=== PATIENT | female | born 1950 | race African-American/Black ===

== ENCOUNTER → 2017-08-31 | Outpatient (CLI) | payer MEDICARE, OTHER ==
[~2017-08-31] MED LIST: AML5T PO; ASPI81TA27 PO; ATOR10TA52 PO; CEPH500T PO; LISI-646 PO; SERT-275 PO; TRAM50TA2 PO
[2017-08-31 09:39] LABS: Basophils # (auto) 0.1 uL; Basophils % (auto) 1.4 % (0.0-2.0); Eosinophils # (auto) 0.2 uL; Hematocrit 41.6 % (36.0-46.0); Hemoglobin 13.9 g/dL (12.2-16.2); Lymphocytes # (auto) 1.1 uL; Lymphocytes % (auto) 19.7 % (10.0-50.0); Mean Corpuscular Hemoglobin 28.9 pg (28.0-32.0); Mean Corpuscular Hgb Conc. 33.4 g/dL (32.0-36.0); Mean Corpuscular Volume 86.5 fL (80.0-100.0); Monocytes # (auto) 0.3 uL; Monocytes % (auto) 5.5 % (0.0-12.0); Neutrophils # (auto) 3.9 uL; Neutrophils % (auto) 69.4 % (37.0-80.0); Nucleated Red Blood Cells % 0.1 %; Platelet Count (auto) 408 10^3/uL (140-450); Red Cell Distribution Width 13.9 % (11.8-14.3); White Blood Cell 5.6 10^3/uL (4.4-10.8)
[2017-08-31 09:53] LABS: Urine Bacteria FEW /hpf (None Seen); Urine Blood Negative /uL (Negative); Urine Mucus FEW (None Seen); Urine Specific Gravity 1.022 (1.001-1.035); Urine WBC 46 /hpf (0 - 5)
[2017-08-31 10:11] LABS: Albumin 3.6 g/dL (3.4-5.0); BUN/Creatinine Ratio 18.7; Bilirubin, Total 0.6 mg/dL (0.2-1.0); Calcium 9.2 mg/dL (8.5-10.1); Magnesium 2.4 mg/dL (1.6-2.6); Potassium 3.9 mmol/L (3.5-5.1); Total Protein 7.2 g/dL (6.4-8.2)
== END | disposition home or self-care (01) ==
LOC: LAB 08:58
DX: E78.5 Hyperlipidemia, unspecified (principal); D86.9 Sarcoidosis, unspecified; Z98.890 Other specified postprocedural states
CPT/HCPCS: 36415; 80053; 80061; 81001; 82043; 82306; 82728; 83036; 83735; 84443; 85025

== ENCOUNTER 2017-09-22 09:24 | Emergency (ER) | payer MEDICARE, OTHER ==
[~2017-09-22] VITALS: Ht 165.1 cm; Wt 84.8 kg
[2017-09-22 10:08] LABS: Basophils # (auto) 0.1 uL; Basophils % (auto) 0.8 % (0.0-2.0); Eosinophils # (auto) 0.3 uL; Eosinophils % (auto) 3.4 % (0.0-7.0); Hematocrit 43.9 % (36.0-46.0); Hemoglobin 14.6 g/dL (12.2-16.2); Lymphocytes # (auto) 1.2 uL; Lymphocytes % (auto) 13.2 % (10.0-50.0); Mean Corpuscular Hgb Conc. 33.2 g/dL (32.0-36.0); Mean Corpuscular Volume 87.3 fL (80.0-100.0); Monocytes # (auto) 0.7 uL; Neutrophils # (auto) 6.7 uL; Neutrophils % (auto) 74.6 % (37.0-80.0); Nucleated Red Blood Cells % 0.1 %; Platelet Count (auto) 427 10^3/uL (140-450); Red Blood Cells 5.02 10^6/uL (4.0-5.20); Red Cell Distribution Width 13.8 % (11.8-14.3)
[2017-09-22 10:36] LABS: Albumin 3.9 g/dL (3.4-5.0); BUN/Creatinine Ratio 17.1; Bilirubin, Total 0.3 mg/dL (0.2-1.0); Calcium 9.2 mg/dL (8.5-10.1); Potassium 4.4 mmol/L (3.5-5.1); Total Protein 8.2 g/dL (6.4-8.2)
[2017-09-22] MEDS ORDERED: SODIUM CHLORIDE 0.9% 1,000 ML IV ONE (11:12)
[2017-09-22 11:22] LABS: Urine Bacteria FEW /hpf (None Seen); Urine Blood Negative /uL (Negative); Urine Mucus FEW (None Seen); Urine Specific Gravity 1.034 (1.001-1.035); Urine WBC 170 /hpf (0 - 5)
[2017-09-22] MEDS ORDERED: LEVOFLOXACIN 500MG 100 ML IV ONE (12:15)
[2017-09-22 14:10] VITALS: BP 122/79
== END 2017-09-22 14:43 | disposition home or self-care (01) ==
LOC: ER 09:24
DX: N39.0 Urinary tract infection, site not specified (principal); F17.210 Nicotine dependence, cigarettes, uncomplicated; I10 Essential (primary) hypertension; E78.5 Hyperlipidemia, unspecified; M19.90 Unspecified osteoarthritis, unspecified site; Z79.899 Other long term (current) drug therapy; Z79.82 Long term (current) use of aspirin; Z98.84 Bariatric surgery status
CPT/HCPCS: 36415; 70450; 80053; 81001; 85025; 93005; 94761; 96361; 96365; 96366; 99285; J1956; J7030

== ENCOUNTER → 2017-10-13 | Outpatient (CLI) | payer MEDICARE, MEDICAID | END | disposition home or self-care (01) | LOC: LAB 09:06 | DX: M25.60 Stiffness of unspecified joint, not elsewhere classified (principal); R26.2 Difficulty in walking, not elsewhere classified | CPT/HCPCS: 36415; 84550; 85652 ==

== ENCOUNTER → 2018-09-04 | Outpatient (CLI) | payer MEDICARE, MEDICAID ==
[2018-09-04 14:41] LABS: Basophils # (auto) 0 uL; Basophils % (auto) 0.7 % (0.0-2.0); Eosinophils # (auto) 0.1 uL; Eosinophils % (auto) 2.2 % (0.0-7.0); Hematocrit 40.6 % (36.0-46.0); Hemoglobin 13.7 g/dL (12.2-16.2); Lymphocytes # (auto) 1.1 uL; Lymphocytes % (auto) 19.8 % (10.0-50.0); Mean Corpuscular Hemoglobin 29.6 pg (28.0-32.0); Mean Corpuscular Hgb Conc. 33.7 g/dL (32.0-36.0); Monocytes # (auto) 0.4 uL; Monocytes % (auto) 7.4 % (0.0-12.0); Neutrophils % (auto) 69.9 % (37.0-80.0); Nucleated Red Blood Cells % 0.1 %; Platelet Count (auto) 344 10^3/uL (140-450); Red Blood Cells 4.62 10^6/uL (4.0-5.20); Red Cell Distribution Width 14.8 % (11.8-14.3); White Blood Cell 5.7 10^3/uL (4.4-10.8)
[2018-09-04 14:44] LABS: Urine Bacteria FEW /hpf (None Seen); Urine Blood Negative /uL (Negative); Urine WBC 7 /hpf (0 - 5)
[2018-09-04 14:55] LABS: Alanine Aminotransferase 17 U/L (13-56); Albumin 3.6 g/dL (3.4-5.0); Anion Gap 3 (5-15); Aspartate Aminotransferase 17 U/L (15-37); BUN/Creatinine Ratio 12.4; Blood Urea Nitrogen 11 mg/dL (7-18); Calcium 8.7 mg/dL (8.5-10.1); Carbon Dioxide 30 mmol/L (21-32); Chloride 106 mmol/L (98-107); GFR African American > 60 mL/min; GFR Non-African American > 60 mL/min; Glucose 150 mg/dL (74-106); Potassium 3.6 mmol/L (3.5-5.1); Sodium 139 mmol/L (136-145)
[2018-09-04 14:59] LABS: Alkaline Phosphatase 79 U/L (45-117); Bilirubin, Total 0.2 mg/dL (0.2-1.0); Cholesterol 257 mg/dL (< 200); HDL Cholesterol 110 mg/dL (40-59); LDL Cholesterol 125 mg/dL (< 100); Total Protein 7.3 g/dL (6.4-8.2); Triglycerides 110 mg/dL (< 150)
== END | disposition home or self-care (01) ==
LOC: LAB 14:16
DX: I10 Essential (primary) hypertension (principal); E78.5 Hyperlipidemia, unspecified; M19.90 Unspecified osteoarthritis, unspecified site; Z79.899 Other long term (current) drug therapy
CPT/HCPCS: 36415; 80053; 80061; 81001; 82043; 83036; 84443; 85025; 87086

== ENCOUNTER → 2019-01-10 | Outpatient (CLI) | payer MEDICARE, MEDICAID ==
[2019-01-10 10:53] LABS: Basophils # (auto) 0 uL; Basophils % (auto) 0.7 % (0.0-2.0); Eosinophils # (auto) 0.3 uL; Eosinophils % (auto) 4.3 % (0.0-7.0); Hematocrit 41.4 % (36.0-46.0); Hemoglobin 13.6 g/dL (12.2-16.2); Lymphocytes # (auto) 1.8 uL; Lymphocytes % (auto) 27.8 % (10.0-50.0); Mean Corpuscular Hemoglobin 28.5 pg (28.0-32.0); Mean Corpuscular Hgb Conc. 32.9 g/dL (32.0-36.0); Mean Corpuscular Volume 86.7 fL (80.0-100.0); Monocytes # (auto) 0.4 uL; Monocytes % (auto) 6.6 % (0.0-12.0); Neutrophils # (auto) 3.9 uL; Neutrophils % (auto) 60.6 % (37.0-80.0); Nucleated Red Blood Cells % 0.1 %; Platelet Count (auto) 403 10^3/uL (140-450); Red Blood Cells 4.77 10^6/uL (4.0-5.20); Red Cell Distribution Width 14.5 % (11.8-14.3); White Blood Cell 6.5 10^3/uL (4.4-10.8)
[2019-01-10 10:56] LABS: Urine Bacteria FEW /hpf (None Seen); Urine Blood TRACE /uL (Negative); Urine Mucus FEW (None Seen); Urine Specific Gravity 1.018 (1.001-1.035); Urine WBC 22 /hpf (0 - 5)
[2019-01-10 11:00] LABS: Albumin 3.6 g/dL (3.4-5.0); BUN/Creatinine Ratio 14.9; Calcium 9.1 mg/dL (8.5-10.1); Potassium 3.7 mmol/L (3.5-5.1)
[2019-01-10 11:04] LABS: Bilirubin, Total 0.3 mg/dL (0.2-1.0); Total Protein 7.3 g/dL (6.4-8.2)
== END | disposition home or self-care (01) ==
LOC: LAB 10:18
PROVIDERS: ATTEND Internal Medicine
DX: I10 Essential (primary) hypertension (principal); R53.83 Other fatigue; E78.5 Hyperlipidemia, unspecified; M19.90 Unspecified osteoarthritis, unspecified site; Z79.899 Other long term (current) drug therapy
CPT/HCPCS: 36415; 80053; 80061; 81001; 82043; 82306; 82607; 83036; 84443; 85025; 87086

== ENCOUNTER → 2019-05-15 | Outpatient (CLI) | payer MEDICARE, MEDICAID ==
[~2019-05-15] MED LIST changes: +ASPI-404 PO; -ASPI81TA27 PO
[2019-05-15 10:23] LABS: Basophils # (auto) 0.1 uL; Basophils % (auto) 1.2 % (0.0-2.0); Eosinophils # (auto) 0.3 uL; Eosinophils % (auto) 4.8 % (0.0-7.0); Hematocrit 43.1 % (36.0-46.0); Hemoglobin 14.6 g/dL (12.2-16.2); Lymphocytes # (auto) 1.7 uL; Lymphocytes % (auto) 27.2 % (10.0-50.0); Mean Corpuscular Hemoglobin 28.8 pg (28.0-32.0); Mean Corpuscular Volume 84.7 fL (80.0-100.0); Monocytes # (auto) 0.3 uL; Neutrophils # (auto) 3.9 uL; Neutrophils % (auto) 61.8 % (37.0-80.0); Platelet Count (auto) 442 10^3/uL (140-450); Red Blood Cells 5.09 10^6/uL (4.0-5.20); Red Cell Distribution Width 14.1 % (11.8-14.3); White Blood Cell 6.3 10^3/uL (4.4-10.8)
[2019-05-15 10:26] LABS: Albumin 3.6 g/dL (3.4-5.0); Calcium 10.3 mg/dL (8.5-10.1); Potassium 4.3 mmol/L (3.5-5.1)
[2019-05-15 10:33] LABS: BUN/Creatinine Ratio 13.6; Bilirubin, Total 0.4 mg/dL (0.2-1.0); Total Protein 7.5 g/dL (6.4-8.2)
[2019-05-15 12:28] LABS: Urine Bacteria MANY /hpf (None Seen); Urine Blood TRACE /uL (Negative); Urine Hyaline Cast FEW /lpf (0 - 2); Urine Mucus FEW (None Seen); Urine Specific Gravity 1.024 (1.001-1.035); Urine WBC 329 /hpf (0 - 5)
== END | disposition home or self-care (01) ==
LOC: LAB 09:10
DX: N30.90 Cystitis, unspecified without hematuria (principal); E78.5 Hyperlipidemia, unspecified; R79.89 Other specified abnormal findings of blood chemistry
CPT/HCPCS: 36415; 80053; 80061; 81001; 82043; 83036; 84439; 84443; 85025; 87086

== ENCOUNTER → 2019-09-11 | Outpatient (CLI) | payer MEDICARE ==
[2019-09-11 10:33] LABS: Basophils # (auto) 0.1 uL; Eosinophils # (auto) 0.3 uL; Hematocrit 43.4 % (36.0-46.0); Hemoglobin 14.4 g/dL (12.2-16.2); Lymphocytes # (auto) 1.4 uL; Lymphocytes % (auto) 22.1 % (10.0-50.0); Mean Corpuscular Hemoglobin 28.8 pg (28.0-32.0); Mean Corpuscular Hgb Conc. 33.2 g/dL (32.0-36.0); Mean Corpuscular Volume 86.8 fL (80.0-100.0); Monocytes # (auto) 0.3 uL; Monocytes % (auto) 4.4 % (0.0-12.0); Neutrophils # (auto) 4.3 uL; Neutrophils % (auto) 68.5 % (37.0-80.0); Platelet Count (auto) 390 10^3/uL (140-450); White Blood Cell 6.3 10^3/uL (4.4-10.8)
[2019-09-11 10:46] LABS: Urine Bacteria FEW /hpf (None Seen); Urine Blood Negative /uL (Negative); Urine Mucus FEW (None Seen); Urine Specific Gravity 1.026 (1.001-1.035); Urine WBC 15 /hpf (0 - 5)
[2019-09-11 11:09] LABS: Potassium 4.1 mmol/L (3.5-5.1)
[2019-09-11 11:15] LABS: Albumin 3.9 g/dL (3.4-5.0); BUN/Creatinine Ratio 17.4; Bilirubin, Total 0.4 mg/dL (0.2-1.0); Calcium 9.3 mg/dL (8.5-10.1); Total Protein 7.8 g/dL (6.4-8.2); Uric Acid 4.8 mg/dL (2.6-6.0)
== END | disposition home or self-care (01) ==
LOC: LAB 09:52
DX: I10 Essential (primary) hypertension (principal); E78.5 Hyperlipidemia, unspecified; N30.90 Cystitis, unspecified without hematuria; D86.9 Sarcoidosis, unspecified; Z86.39 Personal history of other endocrine, nutritional and metabolic disease; Z79.899 Other long term (current) drug therapy
CPT/HCPCS: 36415; 80053; 80061; 81001; 82043; 82306; 83036; 83970; 84443; 84550; 85025; 87086

== ENCOUNTER 2020-01-31 09:14 | Emergency (ER) | payer MEDICARE, MEDICAID ==
[2020-01-31] MEDS ORDERED: SODIUM CHLORIDE 0.9% 1,000 ML IV ONE ×2 (09:51)
[2020-01-31 09:57] LABS: Basophils # (auto) 0.1 10 ^3/uL (0-0.2); Basophils % (auto) 0.9 % (0.0-2.0); Eosinophils # (auto) 0.4 10 ^3/uL (0-0.8); Eosinophils % (auto) 5.6 % (0.0-7.0); Hematocrit 40.4 % (36.0-46.0); Hemoglobin 13.1 g/dL (12.2-16.2); Lymphocytes # (auto) 2.1 10 ^3/uL (0.4-5.4); Lymphocytes % (auto) 26.4 % (10.0-50.0); Mean Corpuscular Hemoglobin 28.5 pg (28.0-32.0); Mean Corpuscular Hgb Conc. 32.5 g/dL (32.0-36.0); Mean Corpuscular Volume 87.9 fL (80.0-100.0); Monocytes # (auto) 0.5 10 ^3/uL (0-1.3); Monocytes % (auto) 6.5 % (0.0-12.0); Neutrophils # (auto) 4.8 10 ^3/uL (1.6-8.6); Neutrophils % (auto) 60.6 % (37.0-80.0); Platelet Count (auto) 400 10^3/uL (140-450); Red Cell Distribution Width 14.5 % (11.8-14.3); White Blood Cell 7.9 10^3/uL (4.4-10.8)
[2020-01-31 10:14] LABS: Albumin 3.4 g/dL (3.4-5.0); Anion Gap 6 (5-15); Blood Urea Nitrogen 13 mg/dL (7-18); Calcium 8.5 mg/dL (8.5-10.1); Carbon Dioxide 26 mmol/L (21-32); Chloride 108 mmol/L (98-107); Glucose 136 mg/dL (74-106); Potassium 3.6 mmol/L (3.5-5.1); Sodium 140 mmol/L (136-145)
[2020-01-31 10:20] LABS: Alanine Aminotransferase 19 U/L (13-56); Alkaline Phosphatase 74 U/L (45-117); Aspartate Aminotransferase 15 U/L (15-37); BUN/Creatinine Ratio 12.6; Bilirubin, Total 0.3 mg/dL (0.2-1.0); GFR African American 68 mL/min; GFR Non-African American 56 mL/min
[2020-01-31 10:24] VITALS: BP 154/83
[2020-01-31] MEDS ORDERED: IOHEXOL 350 MG/ML 100ML IJ ONE (10:36)
[2020-01-31] MEDS ORDERED: DONNATAL 5ml ORAL Elix (BELLADONNA ALK-PHENOBARB) PO ONE (11:15)
[2020-01-31] MEDS ORDERED: LIDOCAINE VISCOUS 2% 15ML UD PO ONE (11:15)
[2020-01-31] MEDS ORDERED: ALUM & MAG HYDROX-SIMETH LIQ(MAALOX) 30 ML PO ONE (11:15)
== END 2020-01-31 12:41 | disposition home or self-care (01) ==
LOC: ER 09:14 → EDBD 09:14 → ER 12:41
DX: R07.89 Other chest pain (principal); F41.9 Anxiety disorder, unspecified; R42 Dizziness and giddiness; R55 Syncope and collapse; F17.210 Nicotine dependence, cigarettes, uncomplicated; E78.5 Hyperlipidemia, unspecified; I10 Essential (primary) hypertension
CPT/HCPCS: 36415; 70450; 71045; 80053; 84484; 85025; 93005; 96360; 96361; 99285; J7030

== ENCOUNTER → 2020-02-04 | Outpatient (CLI) | payer MEDICARE, MEDICAID ==
[~2020-02-04] MED LIST changes: -ASPI-404 PO; +ASPI-543 PO
== END | disposition home or self-care (01) ==
LOC: XYW 10:07
DX: I65.23 Occlusion and stenosis of bilateral carotid arteries (principal); R55 Syncope and collapse
CPT/HCPCS: 93886

== ENCOUNTER → 2021-02-23 | Outpatient (CLI) | payer MEDICARE, MEDICAID ==
[~2021-02-23] MED LIST changes: -LISI-646 PO; +LISI20TA28 PO; -SERT-275 PO; +SERT25TA14 PO
[2021-02-23 10:30] LABS: Basophils # (auto) 0.1 10 ^3/uL (0-0.2); Basophils % (auto) 1.1 % (0.0-2.0); Eosinophils # (auto) 0.4 10 ^3/uL (0-0.8); Eosinophils % (auto) 4.8 % (0.0-7.0); Hematocrit 40.1 % (36.0-46.0); Hemoglobin 13.9 g/dL (12.2-16.2); Lymphocytes # (auto) 2.1 10 ^3/uL (0.4-5.4); Lymphocytes % (auto) 27.7 % (10.0-50.0); Mean Corpuscular Hemoglobin 29.8 pg (28.0-32.0); Mean Corpuscular Hgb Conc. 34.6 g/dL (32.0-36.0); Monocytes # (auto) 0.5 10 ^3/uL (0-1.3); Monocytes % (auto) 6.5 % (0.0-12.0); Neutrophils # (auto) 4.5 10 ^3/uL (1.6-8.6); Neutrophils % (auto) 59.9 % (37.0-80.0); Nucleated Red Blood Cells % 0.1 %; Platelet Count (auto) 391 10^3/uL (140-450); Red Blood Cells 4.66 10^6/uL (4.0-5.20); Red Cell Distribution Width 14.2 % (11.8-14.3); White Blood Cell 7.4 10^3/uL (4.4-10.8)
[2021-02-23 11:02] LABS: Urine Bacteria MOD /hpf (None Seen); Urine Blood Negative /uL (Negative); Urine Hyaline Cast MANY /lpf (0 - 2); Urine Mucus FEW (None Seen); Urine Specific Gravity 1.024 (1.001-1.035); Urine WBC 82 /hpf (0 - 5)
[2021-02-23 11:28] LABS: Folate (Folic Acid) 19.89 ng/mL (5.38-24)
[2021-02-23 12:44] LABS: BUN/Creatinine Ratio 19.2; Potassium 4.1 mmol/L (3.5-5.1)
[2021-02-23 12:45] LABS: Albumin 3.6 g/dL (3.4-5.0); Bilirubin, Total 0.4 mg/dL (0.2-1.0); Calcium 9.6 mg/dL (8.5-10.1); Total Protein 7.2 g/dL (6.4-8.2); Uric Acid 4.5 mg/dL (2.6-6.0)
== END | disposition home or self-care (01) ==
LOC: LAB 10:06
DX: I10 Essential (primary) hypertension (principal); E78.5 Hyperlipidemia, unspecified; R93.89 Abnormal findings on diagnostic imaging of other specified body structures; R42 Dizziness and giddiness; R79.9 Abnormal finding of blood chemistry, unspecified; M48.02 Spinal stenosis, cervical region; M50.20 Other cervical disc displacement, unspecified cervical region; Z79.899 Other long term (current) drug therapy
CPT/HCPCS: 36415; 80053; 81001; 82306; 82607; 82746; 83036; 84443; 84550; 85025; 85049; 86800

== ENCOUNTER 2021-03-06 13:47 | Inpatient (IN) | payer MEDICARE, MEDICAID ==
[~2021-03-06] VITALS: Ht 165.1 cm; Wt 90.9 kg
[2021-03-06 15:09] LABS: Basophils # (auto) 0.1 10 ^3/uL (0-0.2); Eosinophils # (auto) 0.3 10 ^3/uL (0-0.8); Eosinophils % (auto) 3.1 % (0.0-7.0); Hematocrit 40.4 % (36.0-46.0); Hemoglobin 13.2 g/dL (12.2-16.2); Lymphocytes # (auto) 2.1 10 ^3/uL (0.4-5.4); Lymphocytes % (auto) 23.9 % (10.0-50.0); Mean Corpuscular Hemoglobin 28.7 pg (28.0-32.0); Mean Corpuscular Hgb Conc. 32.6 g/dL (32.0-36.0); Mean Corpuscular Volume 88.2 fL (80.0-100.0); Monocytes # (auto) 0.7 10 ^3/uL (0-1.3); Monocytes % (auto) 8.2 % (0.0-12.0); Neutrophils # (auto) 5.5 10 ^3/uL (1.6-8.6); Neutrophils % (auto) 63.8 % (37.0-80.0); Red Blood Cells 4.58 10^6/uL (4.0-5.20); Red Cell Distribution Width 14.2 % (11.8-14.3); White Blood Cell 8.6 10^3/uL (4.4-10.8)
[2021-03-06 15:30] LABS: Blood Urea Nitrogen 16 mg/dL (7-18); Calcium 8.7 mg/dL (8.5-10.1); Chloride 111 mmol/L (98-107); Glucose 102 mg/dL (74-106); Potassium 3.4 mmol/L (3.5-5.1); Sodium 141 mmol/L (136-145)
[2021-03-06 15:33] LABS: Albumin 3.4 g/dL (3.4-5.0); Anion Gap 8 (5-15); BUN/Creatinine Ratio 15.7; Carbon Dioxide 22 mmol/L (21-32); GFR African American 69 mL/min; GFR Non-African American 57 mL/min
[2021-03-06] MEDS ORDERED: SODIUM CHLORIDE 0.9% 1,000 ML IVB ONE (15:45)
[2021-03-06 15:47] LABS: Alanine Aminotransferase 21 U/L (13-56); Alkaline Phosphatase 66 U/L (45-117); Aspartate Aminotransferase 15 U/L (15-37); Bilirubin, Total 0.2 mg/dL (0.2-1.0); Total Protein 6.9 g/dL (6.4-8.2)
[2021-03-06] MEDS ORDERED: PANTOPRAZOLE 40 MG TAB PO ONE (16:33)
[2021-03-06 16:59] LABS: INR 1.12 (0.9-1.15); Partial Thromboplastin Time 21.9 sec (23.0-31.2)
[2021-03-06] MEDS ORDERED: POTASSIUM EFFERVESENT TAB 25 MEQ PO ONE (17:45)
[2021-03-06] MEDS ORDERED: SODIUM CHLORIDE 0.9% 1,000 ML IV SCH (18:15)
[2021-03-06] MEDS ORDERED: traMADol HCL 50 MG TAB PO PRN ×2 (18:15→19:00)
[2021-03-06] MEDS ORDERED: LABETALOL HCL 5 MG/ML ML 20ML VIAL IV PRN (18:15)
[2021-03-06] MEDS ORDERED: LACTULOSE 20Gm/30ML SOLN PO PRN (18:15)
[2021-03-06] MEDS ORDERED: ACETAMINOPHEN 500 MG TAB PO PRN ×2 (18:15→20:00)
[2021-03-06] MEDS ORDERED: SODIUM CHLORIDE 0.9% 2,700 ML IV ONE (18:15)
[2021-03-06] MEDS ORDERED: ONDANSETRON HCL 4 MG/2 ML VIAL IV PRN (18:15)
[2021-03-06] MEDS ORDERED: NITROGLYCERIN 0.4 MG SL TAB SL PRN (18:15)
[2021-03-06] MEDS ORDERED: MORPHINE SULF INJ 2 MG/ML SYRINGE 1ML IV PRN (18:15)
[2021-03-06 19:09] LABS: Urine Bacteria FEW /hpf (None Seen); Urine Blood Negative /uL (Negative); Urine Hyaline Cast MANY /lpf (0 - 2); Urine Mucus FEW (None Seen); Urine Specific Gravity 1.013 (1.001-1.035); Urine WBC 1 /hpf (0 - 5)
[2021-03-06 20:11] LABS: Alcohol, Urine < 3.0 mg/dL (0-10); Amphetamine Screen, Urine NEGATIVE (NEGATIVE); Barbiturate Scree,Urine NEGATIVE (NEGATIVE); Benzodiazephine Screen, Urine NEGATIVE (NEGATIVE); Cannabinoid Screen, Urine NEGATIVE (NEGATIVE); Cocaine Screen, Urine NEGATIVE (NEGATIVE); Opiate Scree,Urine NEGATIVE (NEGATIVE); Phencyclidine Screen, Urine NEGATIVE (NEGATIVE)
[2021-03-06 22:00] VITALS: BP 127/79
[2021-03-06] MEDS: SODIUM CHLORIDE 0.9% 1,000 ML IV SCH (23:14)
[2021-03-07] MEDS: SODIUM CHLORIDE 0.9% 1,000 ML IV SCH ×2 (04:45→14:45)
[2021-03-07 05:00] VITALS: BP 125/68
[2021-03-07 08:40] LABS: BUN/Creatinine Ratio 14.3; Calcium 8.5 mg/dL (8.5-10.1); Potassium 4.1 mmol/L (3.5-5.1)
[2021-03-07 08:45] LABS: Basophils # (auto) 0 10 ^3/uL (0-0.2); Basophils % (auto) 0.6 % (0.0-2.0); Eosinophils # (auto) 0.3 10 ^3/uL (0-0.8); Eosinophils % (auto) 3.6 % (0.0-7.0); Hematocrit 37.4 % (36.0-46.0); Hemoglobin 12.4 g/dL (12.2-16.2); Lymphocytes # (auto) 2.4 10 ^3/uL (0.4-5.4); Lymphocytes % (auto) 32.8 % (10.0-50.0); Mean Corpuscular Hemoglobin 28.9 pg (28.0-32.0); Mean Corpuscular Hgb Conc. 33.2 g/dL (32.0-36.0); Mean Corpuscular Volume 86.9 fL (80.0-100.0); Monocytes # (auto) 0.6 10 ^3/uL (0-1.3); Monocytes % (auto) 8.3 % (0.0-12.0); Neutrophils % (auto) 54.7 % (37.0-80.0); Nucleated Red Blood Cells % 0.1 %; Red Blood Cells 4.31 10^6/uL (4.0-5.20); Red Cell Distribution Width 14.4 % (11.8-14.3); White Blood Cell 7.4 10^3/uL (4.4-10.8)
[2021-03-07 09:12] VITALS: BP 131/76
[2021-03-07] MEDS: ASPirin 81 mg TAB PO SCH (09:43)
[2021-03-07] MEDS: PANTOPRAZOLE 40 MG TAB PO SCH (09:44)
[2021-03-07] MEDS: ENOXAPARIN SOD 40 MG/0.4 ML SYRINGE SC SCH (09:44)
[2021-03-07] MEDS: SERTRALINE HCL 50 MG TAB PO SCH (09:44)
[2021-03-07] MEDS ORDERED: PATIENTS OWN MEDICATION (Sertraline Hcl 1 TAB) PO SCH (10:00)
[2021-03-07] MEDS ORDERED: PATIENTS OWN MEDICATION (Atorvastatin Calcium 1 TAB) PO SCH (10:00)
[2021-03-07 13:00] VITALS: BP 154/63
[2021-03-07 22:00] VITALS: BP 108/57
[2021-03-07] MEDS: ATORVASTATIN 20 MG TAB PO SCH (22:10)
[2021-03-08] MEDS: SODIUM CHLORIDE 0.9% 1,000 ML IV SCH ×3 (01:06→22:21)
[2021-03-08 05:00] VITALS: BP 124/72
[2021-03-08] MEDS: ASPirin 81 mg TAB PO SCH (10:00)
[2021-03-08] MEDS: PANTOPRAZOLE 40 MG TAB PO SCH (10:00)
[2021-03-08] MEDS: SERTRALINE HCL 50 MG TAB PO SCH (10:00)
[2021-03-08] MEDS: ENOXAPARIN SOD 40 MG/0.4 ML SYRINGE SC SCH (10:00)
[2021-03-08 13:00] VITALS: BP 124/59
[2021-03-08 22:00] VITALS: BP 104/70
[2021-03-08] MEDS: PANTOPRAZOLE 40 MG/10 ML VIAL INJ IV SCH (22:08)
[2021-03-08] MEDS: ATORVASTATIN 20 MG TAB PO SCH (22:08)
[2021-03-09 05:45] VITALS: BP 134/69
[2021-03-09] MEDS: SODIUM CHLORIDE 0.9% 1,000 ML IV SCH ×2 (06:41→06:45)
[2021-03-09 09:00] VITALS: BP 140/85
[2021-03-09] MEDS ORDERED: LIDOCAINE VISCOUS 2% 15ML UD ONE (09:17)
[2021-03-09] MEDS ORDERED: SODIUM CHLORIDE LOCK 10 ML ONE (09:18)
[2021-03-09] MEDS: ASPirin 81 mg TAB PO SCH (10:00)
[2021-03-09] MEDS: SERTRALINE HCL 50 MG TAB PO SCH (10:00)
[2021-03-09] MEDS: PANTOPRAZOLE 40 MG/10 ML VIAL INJ IV SCH (10:00)
[2021-03-09] MEDS: ENOXAPARIN SOD 40 MG/0.4 ML SYRINGE SC SCH (10:00)
[2021-03-09] MEDS: MIDAZOLAM HCL 5 MG/ML-1ML VIAL ONE ×2 (11:22→11:25)
[2021-03-09] MEDS: fentaNYL CITRATE 100 MCG/2 ML VL ONE ×2 (11:22→11:25)
[2021-03-09] MEDS: diphenhdrAMINE HCL 50 MG/1 ML VL ONE ×2 (11:22→11:25)
[2021-03-09 13:00] VITALS: BP 118/63
[2021-03-09] MEDS ORDERED: SUCR1TAB22 PO (14:35)
[2021-03-09] MEDS ORDERED: PANT40TA2 PO (14:35)
[2021-03-09 16:02] VITALS: BP 140/85
[2021-03-09] MEDS ORDERED: SUCRALFATE 1 GM/10 ML ORAL SUSP PO SCH (17:00)
== END 2021-03-09 17:17 | disposition home health service (06) | DRG 315 ==
LOC: ER 13:47 → EDBD 13:47 → TELE 18:13 → TELE-WESTW 21:25
PROVIDERS: ADMIT Internal Medicine; ATTEND Internal Medicine
PROC: 0DB68ZX Excision of Stomach, Via Natural or Artificial Opening Endoscopic, Diagnostic (ICD-10-PCS; 2021-03-09)
PROC: 0DB38ZX Excision of Lower Esophagus, Via Natural or Artificial Opening Endoscopic, Diagnostic (ICD-10-PCS; 2021-03-09)
PROC: 0DB98ZX Excision of Duodenum, Via Natural or Artificial Opening Endoscopic, Diagnostic (ICD-10-PCS; principal; 2021-03-09 11:16)
DX: I95.9 Hypotension, unspecified (principal); K22.10 Ulcer of esophagus without bleeding; E86.1 Hypovolemia; I10 Essential (primary) hypertension; E87.6 Hypokalemia; D86.9 Sarcoidosis, unspecified; F41.9 Anxiety disorder, unspecified; F32.9 Major depressive disorder, single episode, unspecified; E66.9 Obesity, unspecified; Z98.84 Bariatric surgery status; E78.5 Hyperlipidemia, unspecified; K21.9 Gastro-esophageal reflux disease without esophagitis; F17.210 Nicotine dependence, cigarettes, uncomplicated; Z20.822 Contact with and (suspected) exposure to COVID-19; Z88.8 Allergy status to other drugs, medicaments and biological substances; Z68.33 Body mass index [BMI] 33.0-33.9, adult; G90.9 Disorder of the autonomic nervous system, unspecified; I11.9 Hypertensive heart disease without heart failure; K29.70 Gastritis, unspecified, without bleeding; K44.9 Diaphragmatic hernia without obstruction or gangrene; Z82.0 Family history of epilepsy and other diseases of the nervous system; Z82.49 Family history of ischemic heart disease and other diseases of the circulatory system; Z83.3 Family history of diabetes mellitus; Z79.82 Long term (current) use of aspirin; Z79.899 Other long term (current) drug therapy; M19.90 Unspecified osteoarthritis, unspecified site
CPT/HCPCS: 36415; 70450; 71046; 76705; 80048; 80053; 80307; 81001; 82550; 83735; 84443; 84484; 85025; 85379; 85610; 85730; 86850; 86900; 86901; 87426; 93005; 93306; 93886; 96360; 96361; C9113; G0378; J2250

== ENCOUNTER 2021-06-03 09:14 | Emergency (ER) | payer MEDICARE, MEDICAID ==
[~2021-06-03] VITALS: Ht 165.1 cm; Wt 81.2 kg
[~2021-06-03 09:14] MED LIST changes: -CEPH500T PO; +PANT40TA2 PO; +SUCR1TAB22 PO
[2021-06-03] MEDS ORDERED: ACETAMINOPHEN 500 MG TAB PO ONE (10:15)
[2021-06-03 10:17] VITALS: BP 160/88
== END 2021-06-03 10:24 | disposition home or self-care (01) ==
LOC: ER 09:14
DX: S93.402A Sprain of unspecified ligament of left ankle, initial encounter (principal); I10 Essential (primary) hypertension; E78.5 Hyperlipidemia, unspecified; F17.210 Nicotine dependence, cigarettes, uncomplicated; Z79.82 Long term (current) use of aspirin; Z79.899 Other long term (current) drug therapy; Z88.8 Allergy status to other drugs, medicaments and biological substances; W18.49XA Other slipping, tripping and stumbling without falling, initial encounter; Y93.89 Activity, other specified; Y92.89 Other specified places as the place of occurrence of the external cause; Y99.8 Other external cause status
CPT/HCPCS: 73610

== ENCOUNTER 2021-09-01 07:44 | Emergency (ER) | payer MEDICARE, MEDICAID ==
[~2021-09-01] VITALS: Ht 165.1 cm; Wt 86.2 kg
[~2021-09-01 07:44] MED LIST changes: -AML5T PO; -ASPI-543 PO; -ATOR10TA52 PO; +CHOL20007 OR; -SERT25TA14 PO; -TRAM50TA2 PO
[2021-09-01 08:40] VITALS: BP 167/81
[2021-09-01 10:03] LABS: Urine Bacteria FEW /hpf (None Seen); Urine Blood Negative /uL (Negative); Urine WBC 23 /hpf (0 - 5)
[2021-09-01] MEDS ORDERED: ALBU108A5 IN (10:29)
[2021-09-01] MEDS ORDERED: LEVO500T31 PO (10:29)
== END 2021-09-01 10:39 | disposition home or self-care (01) ==
LOC: ER 07:44
DX: J20.9 Acute bronchitis, unspecified (principal); N39.0 Urinary tract infection, site not specified; Z20.822 Contact with and (suspected) exposure to COVID-19
CPT/HCPCS: 36415; 71046; 81001; 87426

== ENCOUNTER → 2021-11-10 | Outpatient (CLI) | payer MEDICARE, MEDICAID ==
[~2021-11-10] MED LIST changes: +ALBU108A5 IN; +LEVO500T31 PO
[2021-11-10 11:26] LABS: Basophils # (auto) 0 10 ^3/uL (0-0.2); Basophils % (auto) 0.7 % (0.0-2.0); Eosinophils # (auto) 0.2 10 ^3/uL (0-0.8); Eosinophils % (auto) 3.8 % (0.0-7.0); Hematocrit 36.6 % (36.0-46.0); Hemoglobin 12.2 g/dL (12.2-16.2); Lymphocytes # (auto) 1.6 10 ^3/uL (0.4-5.4); Lymphocytes % (auto) 30.1 % (10.0-50.0); Mean Corpuscular Hemoglobin 28.2 pg (28.0-32.0); Mean Corpuscular Hgb Conc. 33.3 g/dL (32.0-36.0); Mean Corpuscular Volume 84.8 fL (80.0-100.0); Monocytes # (auto) 0.4 10 ^3/uL (0-1.3); Monocytes % (auto) 6.7 % (0.0-12.0); Neutrophils # (auto) 3.2 10 ^3/uL (1.6-8.6); Neutrophils % (auto) 58.7 % (37.0-80.0); Nucleated Red Blood Cells % 0.1 %; Red Blood Cells 4.31 10^6/uL (4.0-5.20); Red Cell Distribution Width 15.5 % (11.8-14.3); White Blood Cell 5.5 10^3/uL (4.4-10.8)
[2021-11-10 11:52] LABS: Potassium 4.4 mmol/L (3.5-5.1)
[2021-11-10 12:13] LABS: BUN/Creatinine Ratio 16.7
[2021-11-10 12:14] LABS: Albumin 3.5 g/dL (3.4-5.0); Bilirubin, Total 0.4 mg/dL (0.2-1.0); Calcium 9.3 mg/dL (8.5-10.1); Total Protein 7.1 g/dL (6.4-8.2)
== END | disposition home or self-care (01) ==
LOC: LAB 09:48
PROVIDERS: ATTEND Family Medicine
DX: I12.9 Hypertensive chronic kidney disease with stage 1 through stage 4 chronic kidney disease, or unspecified chronic kidney disease (principal); N18.2 Chronic kidney disease, stage 2 (mild); K29.70 Gastritis, unspecified, without bleeding; E78.5 Hyperlipidemia, unspecified; R53.83 Other fatigue; R73.03 Prediabetes; E55.9 Vitamin D deficiency, unspecified; R55 Syncope and collapse
CPT/HCPCS: 36415; 80053; 80061; 82306; 83036; 84439; 84443; 85025

== ENCOUNTER → 2022-01-12 | Outpatient (CLI) | payer MEDICARE, MEDICAID ==
[2022-01-12 10:47] LABS: Urine Bacteria FEW /hpf (None Seen); Urine Blood Negative /uL (Negative); Urine Specific Gravity 1.027 (1.001-1.035); Urine WBC 4 /hpf (0 - 5)
[2022-01-12 10:52] LABS: Basophils # (auto) 0.1 10 ^3/uL (0-0.2); Basophils % (auto) 0.8 % (0.0-2.0); Eosinophils # (auto) 0.2 10 ^3/uL (0-0.8); Eosinophils % (auto) 3.2 % (0.0-7.0); Hematocrit 38.7 % (36.0-46.0); Hemoglobin 12.5 g/dL (12.2-16.2); Lymphocytes # (auto) 1.5 10 ^3/uL (0.4-5.4); Lymphocytes % (auto) 22.4 % (10.0-50.0); Mean Corpuscular Hemoglobin 27.2 pg (28.0-32.0); Mean Corpuscular Hgb Conc. 32.4 g/dL (32.0-36.0); Monocytes # (auto) 0.4 10 ^3/uL (0-1.3); Monocytes % (auto) 6.5 % (0.0-12.0); Neutrophils # (auto) 4.5 10 ^3/uL (1.6-8.6); Neutrophils % (auto) 67.1 % (37.0-80.0); Red Cell Distribution Width 15.1 % (11.8-14.3); White Blood Cell 6.7 10^3/uL (4.4-10.8)
[2022-01-12 11:05] LABS: Free T4 (Free Thyroxine) 1.22 ng/dL (0.89-1.76)
[2022-01-12 11:06] LABS: Folate (Folic Acid) > 24.00 ng/mL (5.38-24)
[2022-01-12 11:15] LABS: Calcium 9.2 mg/dL (8.5-10.1); Magnesium 2.6 mg/dL (1.6-2.6); Potassium 4.1 mmol/L (3.5-5.1)
[2022-01-12 11:24] LABS: Albumin 3.5 g/dL (3.4-5.0); Bilirubin, Total 0.2 mg/dL (0.2-1.0); Total Protein 7.6 g/dL (6.4-8.2); Uric Acid 5.7 mg/dL (2.6-6.0)
== END | disposition home or self-care (01) ==
LOC: LAB 09:32
PROVIDERS: ATTEND Family Medicine
DX: R10.2 Pelvic and perineal pain (principal); R26.2 Difficulty in walking, not elsewhere classified; E78.5 Hyperlipidemia, unspecified; R73.03 Prediabetes; D86.9 Sarcoidosis, unspecified; I10 Essential (primary) hypertension; Z71.6 Tobacco abuse counseling; Z72.0 Tobacco use; Z98.890 Other specified postprocedural states; Z79.899 Other long term (current) drug therapy
CPT/HCPCS: 36415; 80053; 80061; 81001; 82274; 82306; 82607; 82746; 83735; 84439; 84443; 84550; 85025

== ENCOUNTER 2022-04-23 19:25 | Inpatient (IN) | payer MEDICARE, MEDICAID ==
[~2022-04-23] VITALS: Ht 167.6 cm; Wt 80.0 kg
[2022-04-23 23:49] LABS: Basophils # (auto) 0.1 10 ^3/uL (0-0.2); Basophils % (auto) 0.6 % (0.0-2.0); Eosinophils # (auto) 0.2 10 ^3/uL (0-0.8); Eosinophils % (auto) 1.6 % (0.0-7.0); Hematocrit 39.4 % (36.0-46.0); Hemoglobin 12.6 g/dL (12.2-16.2); Lymphocytes # (auto) 1.8 10 ^3/uL (0.4-5.4); Lymphocytes % (auto) 18.4 % (10.0-50.0); Mean Corpuscular Hgb Conc. 32.1 g/dL (32.0-36.0); Mean Corpuscular Volume 84.1 fL (80.0-100.0); Monocytes # (auto) 0.5 10 ^3/uL (0-1.3); Monocytes % (auto) 5.2 % (0.0-12.0); Neutrophils # (auto) 7.3 10 ^3/uL (1.6-8.6); Neutrophils % (auto) 74.2 % (37.0-80.0); Red Blood Cells 4.68 10^6/uL (4.0-5.20); Red Cell Distribution Width 16.9 % (11.8-14.3); White Blood Cell 9.8 10^3/uL (4.4-10.8)
[2022-04-24 00:13] LABS: Albumin 3.7 g/dL (3.4-5.0); Calcium 9.2 mg/dL (8.5-10.1); Potassium 4.6 mmol/L (3.5-5.1)
[2022-04-24 00:15] LABS: BUN/Creatinine Ratio 20.6
[2022-04-24 00:18] LABS: Bilirubin, Total 0.3 mg/dL (0.2-1.0); Total Protein 6.8 g/dL (6.4-8.2)
[2022-04-24] MEDS: ACETAMINOPHEN 325 MG TAB PO ONE ×2 (02:09→02:20)
[2022-04-24] MEDS ORDERED: ONDANSETRON HCL 4 MG/2 ML VIAL IV PRN (03:00)
[2022-04-24] MEDS ORDERED: MORPHINE SULFATE INJ 2 MG/ml SYRG IV PRN (03:00)
[2022-04-24] MEDS ORDERED: ACETAMINOPHEN 325 MG TAB PO PRN (03:00)
[2022-04-24] MEDS ORDERED: HYDROcodone-ACET 5/325MG TAB PO PRN (03:00)
[2022-04-24] MEDS ORDERED: SODIUM CHLORIDE 0.9% 1,000 ML IV SCH (03:00)
[2022-04-24 04:20] LABS: Basophils # (auto) 0.1 10 ^3/uL (0-0.2); Eosinophils # (auto) 0.2 10 ^3/uL (0-0.8); Eosinophils % (auto) 2.4 % (0.0-7.0); Hematocrit 38.8 % (36.0-46.0); Hemoglobin 12.8 g/dL (12.2-16.2); Lymphocytes # (auto) 2.4 10 ^3/uL (0.4-5.4); Lymphocytes % (auto) 25.9 % (10.0-50.0); Mean Corpuscular Hemoglobin 27.4 pg (28.0-32.0); Mean Corpuscular Volume 83.1 fL (80.0-100.0); Monocytes # (auto) 0.7 10 ^3/uL (0-1.3); Monocytes % (auto) 7.4 % (0.0-12.0); Neutrophils # (auto) 5.8 10 ^3/uL (1.6-8.6); Neutrophils % (auto) 63.3 % (37.0-80.0); Nucleated Red Blood Cells % 0.1 %; Red Blood Cells 4.68 10^6/uL (4.0-5.20); Red Cell Distribution Width 16.7 % (11.8-14.3); White Blood Cell 9.1 10^3/uL (4.4-10.8)
[2022-04-24 04:41] LABS: BUN/Creatinine Ratio 21.6; Calcium 9.3 mg/dL (8.5-10.1); Potassium 4.2 mmol/L (3.5-5.1)
[2022-04-24 08:00] VITALS: BP 166/64
[2022-04-24 08:53] LABS: Urine Bacteria FEW /hpf (None Seen); Urine Blood Negative /uL (Negative); Urine Specific Gravity 1.011 (1.001-1.035); Urine WBC <1 /hpf (0 - 5)
[2022-04-24 09:12] LABS: Alcohol, Urine < 3.0 mg/dL (0-10); Amphetamine Screen, Urine NEGATIVE (NEGATIVE); Barbiturate Scree,Urine NEGATIVE (NEGATIVE); Benzodiazephine Screen, Urine NEGATIVE (NEGATIVE); Cannabinoid Screen, Urine NEGATIVE (NEGATIVE); Cocaine Screen, Urine NEGATIVE (NEGATIVE); Opiate Scree,Urine NEGATIVE (NEGATIVE); Phencyclidine Screen, Urine NEGATIVE (NEGATIVE)
[2022-04-24] MEDS ORDERED: LISINOPRIL 10 MG TAB PO SCH (10:00)
[2022-04-24] MEDS ORDERED: PANTOPRAZOLE 40 MG TAB PO SCH (10:00)
== END 2022-04-24 09:52 | disposition left against medical advice (07) | DRG 312 ==
LOC: EDUNIT# 19:25 → ER 19:25 → EDBD 19:25 → TELE 04-24 02:56
PROVIDERS: ADMIT Hospitalist; ATTEND Hospitalist
DX: R55 Syncope and collapse (principal); F17.210 Nicotine dependence, cigarettes, uncomplicated; I10 Essential (primary) hypertension; Z53.29 Procedure and treatment not carried out because of patient's decision for other reasons; F41.9 Anxiety disorder, unspecified; Z20.822 Contact with and (suspected) exposure to COVID-19; F32.A Depression, unspecified; K21.9 Gastro-esophageal reflux disease without esophagitis; Z88.1 Allergy status to other antibiotic agents; Z83.3 Family history of diabetes mellitus; Z80.1 Family history of malignant neoplasm of trachea, bronchus and lung
CPT/HCPCS: 36415; 70450; 71045; 72125; 73030; 80048; 80053; 80307; 81001; 84484; 85025; 96360; G0378

== ENCOUNTER 2023-01-03 15:56 | Emergency (ER) | payer MEDICARE, MEDICAID ==
[~2023-01-03] VITALS: Ht 180.3 cm; Wt 100.0 kg
[2023-01-03 17:03] LABS: Albumin 3.4 g/dL (3.4-5.0); Calcium 8.6 mg/dL (8.5-10.1); Magnesium 2.4 mg/dL (1.6-2.6)
[2023-01-03 17:07] LABS: BUN/Creatinine Ratio 13.9 (10.0-20.0); Bilirubin, Total 0.4 mg/dL (0.2-1.0); Total Protein 6.3 g/dL (6.4-8.2)
[2023-01-03 17:24] LABS: Basophils # (auto) 0.1 10 ^3/uL (0-0.2); Basophils % (auto) 0.9 % (0.0-2.0); Eosinophils # (auto) 0.2 10 ^3/uL (0-0.8); Eosinophils % (auto) 2.8 % (0.0-7.0); Hemoglobin 11.7 g/dL (12.2-16.2); Lymphocytes # (auto) 1.8 10 ^3/uL (0.4-5.4); Lymphocytes % (auto) 21.3 % (10.0-50.0); Mean Corpuscular Hemoglobin 27.8 pg (28.0-32.0); Mean Corpuscular Hgb Conc. 30.9 g/dL (32.0-36.0); Monocytes # (auto) 0.7 10 ^3/uL (0-1.3); Monocytes % (auto) 8.6 % (0.0-12.0); Neutrophils # (auto) 5.5 10 ^3/uL (1.6-8.6); Neutrophils % (auto) 66.4 % (37.0-80.0); Nucleated Red Blood Cells % 0.1 %; Red Blood Cells 4.22 10^6/uL (4.0-5.20); Red Cell Distribution Width 16.5 % (11.8-14.3); White Blood Cell 8.2 10^3/uL (4.4-10.8)
[2023-01-03 18:00] VITALS: BP 152/76
== END 2023-01-03 19:32 | disposition home or self-care (01) ==
LOC: ER 15:56 → EDUNIT# 15:56 → EDBD 15:56 → ER 19:32
DX: R55 Syncope and collapse (principal); F41.9 Anxiety disorder, unspecified; M19.90 Unspecified osteoarthritis, unspecified site; F32.9 Major depressive disorder, single episode, unspecified; K21.9 Gastro-esophageal reflux disease without esophagitis; E78.5 Hyperlipidemia, unspecified; I10 Essential (primary) hypertension
CPT/HCPCS: 36415; 71045; 80053; 83605; 83735; 83880; 84484; 85025; 93005

== ENCOUNTER 2023-09-09 11:30 | Emergency (ER) | payer MEDICARE, MEDICAID ==
[~2023-09-09] VITALS: Ht 165.1 cm; Wt 94.1 kg
[~2023-09-09 11:30] MED LIST changes: -LISI20TA28 PO; +LISI20TA56 PO
[2023-09-09 11:37] VITALS: BP 137/78; RESP 16; O2SAT 98
[2023-09-09 12:59] LABS: Chloride 108 mmol/L (98-107); Potassium 4.3 mmol/L (3.5-5.1); Sodium 141 mmol/L (136-145)
[2023-09-09 13:00] LABS: Anion Gap 5 (5-15); Calcium 9.5 mg/dL (8.5-10.1); Carbon Dioxide 28 mmol/L (20-30)
[2023-09-09 13:02] LABS: Basophils # (auto) 0.1 10 ^3/uL (0-0.2); Hematocrit 37.4 % (36.0-46.0); Hemoglobin 11.9 g/dL (12.2-16.2); Monocytes # (auto) 0.5 10 ^3/uL (0-1.3); Monocytes % (auto) 6.4 % (0.0-12.0)
[2023-09-09 13:03] LABS: Basophils % (auto) 0.9 % (0.0-2.0); Eosinophils # (auto) 0.3 10 ^3/uL (0-0.8); Eosinophils % (auto) 4.4 % (0.0-7.0); Lymphocytes # (auto) 1.7 10 ^3/uL (0.4-5.4); Lymphocytes % (auto) 22.2 % (10.0-50.0); Mean Corpuscular Hgb Conc. 31.8 g/dL (32.0-36.0); Mean Corpuscular Volume 84.8 fL (80.0-100.0); Neutrophils # (auto) 5.1 10 ^3/uL (1.6-8.6); Neutrophils % (auto) 66.1 % (37.0-80.0); Nucleated Red Blood Cells % 0.1 %; Red Blood Cells 4.41 10^6/uL (4.0-5.20); Red Cell Distribution Width 16.3 % (11.8-14.3); White Blood Cell 7.7 10^3/uL (4.4-10.8)
[2023-09-09 13:04] VITALS: PULSE 70
[2023-09-09 13:05] LABS: BUN/Creatinine Ratio 12.3 (10.0-20.0); Blood Urea Nitrogen 10 mg/dL (9-23); Glucose 90 mg/dL (74-106)
[2023-09-09 13:20] LABS: INR 1.05 (0.9-1.15)
[2023-09-09] MEDS ORDERED: IOHEXOL 350 MG/ML 100ML IJ ONE (14:27)
[2023-09-09] MEDS ORDERED: NAPR-1334 PO ×3 (15:50→16:18)
== END 2023-09-09 16:21 | disposition home or self-care (01) ==
LOC: ER 11:30
DX: M75.02 Adhesive capsulitis of left shoulder (principal); M25.512 Pain in left shoulder; E04.1 Nontoxic single thyroid nodule; I10 Essential (primary) hypertension; K21.9 Gastro-esophageal reflux disease without esophagitis; E78.5 Hyperlipidemia, unspecified; F17.210 Nicotine dependence, cigarettes, uncomplicated; Z79.2 Long term (current) use of antibiotics; Z79.899 Other long term (current) drug therapy; Z88.8 Allergy status to other drugs, medicaments and biological substances
CPT/HCPCS: 36415; 70450; 71275; 80048; 85025; 85610; 93005; 99285; Q9967

== ENCOUNTER 2025-01-24 00:24 | Emergency (ER) | payer MEDICARE, MEDICAID ==
[~2025-01-24] VITALS: Ht 180.3 cm; Wt 104.0 kg
[~2025-01-24 00:24] MED LIST changes: +NAPR-1335 PO; -SUCR1TAB22 PO; +SUCR1TAB31 PO
--- NOTE | 2025-01-24 00:37 | ED.PDOC ---
History of Present Illness HPI Comments 74-year-old female who came to ER by EMS for syncope. Patient has history of hypertension and dyslipidemia. Patient was at home earlier, when she started having hot flushes, diaphoresis, nausea, generalized weakness, and had a near syncopal attack, as she assisted herself as she went down. Blood pressure on scene was 97/60 mmHg, bradycardic at 50s, with a blood sugar of 154. Patient denies any acute pain at this time of care Chief Complaint: Syncope Time Seen by MD: 00:36 Primary Care Provider: SABI Gandara Notes: Jewelry Appraiser Notes Allergies: Coded Allergies: Ceftriaxone (Unverified Allergy, Unknown, 01/06/14) Home Meds Active Scripts Naproxen Sodium (Naproxen) 220 Mg Tab, 220 MG PO BID for 7 Days, #14 TAB Prov:MARGARITA GERARD MD 09/09/23 Albuterol Sulfate (Albuterol Sulfate Hfa) 108 Mcg/Act Aer, 108 MCG IN TID for 20 Days, #1 AER Prov:NETTA CALLAHAN 09/01/21 Levofloxacin (Levaquin) 500 Mg Tab, 500 MG PO DAILY for 10 Days, #10 TAB Prov:NETTA CALLAHAN 09/01/21 Sucralfate (CARAFATE) 1 Gm Tab, 1 GM PO QIDACHS for 30 Days, #120 TAB 1 Refill Prov:TERESITA BRUNNER MD 03/09/21 Pantoprazole Sodium Sesquihydr (Protonix) 40 Mg Tab, 40 MG PO BID for 30 Days, #60 TAB 1 Refill Prov:TERESITA BRUNNER MD 03/09/21 Reported Medications Cholecalciferol (VITAMIN D3) 2,000 Unit Tab, 2000 UNIT OR, TAB 06/25/21 Lisinopril (Lisinopril) 20 Mg Tab, 20 MG PO DAILY for 30 Days, MG 02/25/15 Information Source: Patient, Emergency Med Personnel Mode of Arrival: EMS Severity: Moderate Timing: Minutes Duration: Minutes Prehospital treatment: Accucheck Past Medical History PAST MEDICAL HISTORY: Anxiety, Arthritis, Depression, GERD, High Lipids, HTN 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 History: IT 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 History: No Pertinent IT TRAINEE History Family History Family History: Reviewed,noncontributory to illness, Family hx of DM, Family hx of HTN Social History Smoker: Cigarettes, Less Than 1 Pack/Day Alcohol: Denies ETOH Use Drugs: Denies Drug Use Lives In: Home Constitutional: reports: diaphoresis, fatigue, weakness; denies: chills, fever, malaise, sweats, others EENTM: denies: blurred vision, double vision, ear bleeding, ear discharge, ear drainage, ear pain, ear ringing, eye pain, eye redness, hearing loss, mouth pain, mouth swelling, nasal discharge, nose bleeding, nose congestion, nose pain, photophobia, tearing, throat pain, throat swelling, voice changes, others Respiratory: denies: cough, hemoptysis, orthopnea, SOB at rest, shortness of breath, SOB with excertion, stridor, wheezing, others Cardiovascular: denies: chest pain, dizzy spells, diaphoresis, Dyspnea on exertion, edema, irregular heart beat, left arm pain, lightheadedness, palpitations, PND, syncope, others Gastrointestinal: reports: nausea; denies: abdomen distended, abdominal pain, blood streaked bowels, constipated, diarrhea, dysphagia, difficulty swallowing, hematemesis, melena, poor appetite, poor fluid intake, rectal bleeding, rectal pain, vomiting, others Genitourinary: denies: abnormal vagina bleeding, burning, dyspareunia, dysuria, flank pain, frequency, hematuria, incontinence, pain, , vagina discharge, urgency, others Neurological: reports: dizziness, fainting; denies: headache, left sided numbness, left sided weakness, numbness, paresthesia, pre-existing deficit, right sided numbness, right sided weakness, seizure, speech problems, tingling, tremors, weakness, others Musculoskeletal: denies: back pain, gout, joint pain, joint swelling, muscle pain, muscle stiffness, neck pain, others Integumetry: denies: bruises, change in color, change in hair/nails, dryness, laceration, lesions, lumps, rash, wounds, others Allergic/Immunocompromised: denies: Difficulty Healing, Frequent Infections, Hives, Itching, others Hematologic/Lymphatic: denies: anemia, blood clots, easy bleeding, easy bruising, swollen glands, others Endocrine: denies: excessive hunger, excessive sweating, excessive thirst, excessive urination, flushing, intolerance to cold, intolerance to heat, unexplained weight gain, unexplained weight loss, others Psychiatric: denies: anxiety, bipolar disorder, depression, hopeless, panic disorder, schizophrenia, sleepless, suicidal, others Physical Exam General Appearance: No Apparent Distress, Normal HEENT: Normal ENT Inspection, Pharynx Normal, TMs Normal Neck: Full Range of Motion, Non-Tender, Normal, Normal Inspection Respiratory: Chest Non-Tender, Lungs Clear, No Accessory Muscle Use, No Respiratory Distress, Normal Breath Sounds Cardiovascular: No Edema, No JVD, No Murmur, No Gallop, Normal Peripheral Pulses, Regular Rate/Rhythm Breast Exam: Deferred Gastrointestinal: No Organomegaly, Non Tender, No Pulsatile Mass, Normal Bowel Sounds, Soft Genitalia: Deferred Pelvic: Deferred Rectal: Deferred Extremities: No calf tenderness, Normal capillary refill, Normal inspection, Normal range of motion, Non-tender, No pedal edema Musculoskeletal : Apperance: Normal Neurologic: Alert, loss prevention associate II-XII nml as Tested, No Motor Deficits, Normal Affect, Normal Mood, No Sensory Deficits Cerebellar Function: Normal Reflexes: Normal Skin: Dry, Normal Color, Warm Lymphatic: No Adenopathy Was a procedure done? Was a procedure done?: No Differential Dx Considerations may include: Anemia, electrolyte imbalance, syncope, hypotension X-Ray, Labs, Meds, VS Vital Signs Date Time Temp Pulse Resp B/P (MAP) Pulse Ox O2 Delivery O2 Flow Rate FiO2 01/24/25 00:26 65 01/24/25 00:24 98.0 64 16 133/56 (81) 100 98.0 Lab Test 01/24/25 00:45 Range/Units White Blood Count 7.6 4.4-10.8 10^3/uL Red Blood Count 4.40 4.0-5.20 10^6/uL Hemoglobin 11.7 L 12.2-16.2 g/dL Hematocrit 36.4 36.0-46.0 % Mean Corpuscular Volume 82.8 80.0-100.0 fL Mean Corpuscular Hemoglobin 26.6 L 28.0-32.0 pg Mean Corpuscular Hemoglobin Concent 32.2 32.0-36.0 g/dL Red Cell Distribution Width 16.1 H 11.8-14.3 % Platelet Count 484 H 140-450 10^3/uL Mean Platelet Volume 6.5 L 6.9-10.8 fL Neutrophils (%) (Auto) 61.3 37.0-80.0 % Lymphocytes (%) (Auto) 29.5 10.0-50.0 % Monocytes (%) (Auto) 5.9 0.0-12.0 % Eosinophils (%) (Auto) 2.7 0.0-7.0 % Basophils (%) (Auto) 0.6 0.0-2.0 % Neutrophils # (Auto) 4.7 1.6-8.6 10 ^3/uL Lymphocytes # (Auto) 2.2 0.4-5.4 10 ^3/uL Monocytes # (Auto) 0.5 0-1.3 10 ^3/uL Eosinophils # (Auto) 0.2 0-0.8 10 ^3/uL Basophils # (Auto) 0 0-0.2 10 ^3/uL Nucleated Red Blood Cells 0.0 % Sodium Level 143 136-145 mmol/L Potassium Level 4.0 3.5-5.1 mmol/L Chloride Level 109 H 98-107 mmol/L Carbon Dioxide Level 25 20-31 mmol/L Anion Gap 9 5-15 Blood Urea Nitrogen 12 9-23 mg/dL Creatinine 1.01 0.550-1.02 mg/dL Glomerular Filtration Rate Calc 58 >90 mL/min BUN/Creatinine Ratio 11.9 10.0-20.0 Serum Glucose 170 H 74-106 mg/dL Lactic Acid Level 1.7 0.4-2.0 mmol/L Calcium Level 9.2 8.7-10.4 mg/dL Magnesium Level 2.0 1.6-2.6 mg/dL Total Bilirubin 0.4 0.2-1.0 mg/dL Aspartate Amino Transferase (AST) 22 13-40 U/L Alanine Aminotransferase (ALT) 17 7-40 U/L Alkaline Phosphatase 96 46-116 U/L Troponin I High Sensitivity 5 </=34 ng/L Total Protein 6.4 5.7-8.2 g/dL Albumin 4.2 3.2-4.8 g/dL Time of 1ST Reevaluation: 00:33 Reevaluation 1ST: Unchanged Patient Education/Counseling: Diagnosis, Treatment Family Education/Counseling: No Family Present Sepsis Sepsis Reasesment Focused Exam Orders: Laboratory Tests 01/24/25 00:45: Lactic Acid Level 1.7 Departure 1 Departure Time of Disposition: 02:51 Impression: Primary Impression: Syncope and collapse Additional Impressions: Intermediate coronary syndrome Hypotension Dehydration Disposition: 09 ADMITTED INPATIENT Condition: Guarded Discharged With: Self Comments 74-year-old Female with Syncope and Hypotension Chief Complaint: Syncope History of Present Illness: 74-year-old female presented via EMS after experiencing a syncopal episode at home approximately one hour prior to arrival. Patient reports prodromal symptoms including feeling flushed, diaphoresis, and nausea prior to losing consciousness. Initial vital signs were notable for hypotension, which improved with IV fluid resuscitation to 133/56. Review of Systems: Constitutional: Positive for syncope, diaphoresis Cardiovascular: Positive for hypotension Gastrointestinal: Positive for nausea All other systems reviewed and negative Medications: Medications for hypertension - specific agents unknown Medications for hypercholesterolemia - specific agents unknown Past Medical History: 1. Hypertension 2. Hypercholesterolemia Vital Signs: Blood Pressure: Initially hypotensive, improved to 133/56 after IV fluids Physical Exam: Physical examination details not provided in dispatch machine runner Lab Results: CBC: - Hemoglobin: 11.7 g/dL - Hematocrit: 36.4% - Platelets: 484k/L (Elevated) - WBC: 7.6k/L (Normal) Chemistry: - Glucose: 170 mg/dL (Elevated) - Lactic acid: 1.7 (Normal) Cardiac: - Initial Troponin: 5 (Normal) Imaging and Other Relevant Results: No imaging results available in dispatch machine runner Medical Decision Making: Summary Statement: 74-year-old female with history of hypertension and hypercholesterolemia presenting with syncope, associated hypotension, and intermediate coronary syndrome requiring admission. Problem List: 1. Syncope 2. Hypotension 3. Dehydration 4. Intermediate coronary syndrome Differential Diagnosis: 1. Cardiac syncope 2. Orthostatic hypotension 3. Dehydration 4. Vasovagal syncope 5. Medication-induced hypotension ED Course: Patient received IV fluid resuscitation with improvement in blood pressure. Baby aspirin administered. Decision made to admit for further evaluation and management. Assessment and Plan: 1. Syncope: - Admit to medical floor for further evaluation - Cardiac monitoring - Serial troponins 2. Hypotension/Dehydration: - Continue IV fluid resuscitation - Monitor vital signs - Review home medications 3. Intermediate Coronary Syndrome: - Initiated on aspirin - Cardiac monitoring - Cardiology consultation Billing Information: ICD-10: R55 - Syncope and collapse ICD-10: I95.9 - Hypotension, unspecified ICD-10: E86.0 - Dehydration ICD-10: I20.0 - Unstable angina Critical Care Note Critical Care Time?: Yes (35 min-critical care time only) Critical care comment: Hypotension, bradycardia Total critical care time: Approximately 36 minutes Due to a high probability of clinically significant, life threatening deterio ration, the patient required my highest level of preparedness to intervene emergently and I personally spent this critical care time directly and personally managing the patient. This critical care time included obtaining a history; examining the patient; pulse oximetry; ordering and review of studies; arranging urgent treatment with development of a management plan; evaluation of patient's response to treatment; frequent reassessment; and, discussions with other providers. This critical care time was performed to assess and manage the high probability of imminent, life-threatening deterioration that could result in multi-organ failure. It was exclusive of separately billable procedures and treating other patients. Stability Stability form required: No Heart Score Heart Score: Heart Score Response (Comments) Value History N/A 0 EKG N/A 0 Age N/A 0 Risk Factors N/A 0 Troponin N/A 0 Total 0 I personally scribed for MARISOL JULES MD ([email or web address]) on 01/24/25 at 00:37. Electronically submitted by Pedro Luis Norwood ([email or web address]). MARISOL JULES MD Jan 24, 2025 00:37
[2025-01-24 01:22] LABS: Eosinophils # (auto) 0.2 10 ^3/uL (0-0.8); Neutrophils # (auto) 4.7 10 ^3/uL (1.6-8.6)
[2025-01-24 01:24] LABS: Basophils # (auto) 0 10 ^3/uL (0-0.2); Basophils % (auto) 0.6 % (0.0-2.0); Eosinophils % (auto) 2.7 % (0.0-7.0); Hematocrit 36.4 % (36.0-46.0); Hemoglobin 11.7 g/dL (12.2-16.2); Lymphocytes # (auto) 2.2 10 ^3/uL (0.4-5.4); Lymphocytes % (auto) 29.5 % (10.0-50.0); Mean Corpuscular Hemoglobin 26.6 pg (28.0-32.0); Mean Corpuscular Hgb Conc. 32.2 g/dL (32.0-36.0); Mean Corpuscular Volume 82.8 fL (80.0-100.0); Monocytes # (auto) 0.5 10 ^3/uL (0-1.3); Monocytes % (auto) 5.9 % (0.0-12.0); Neutrophils % (auto) 61.3 % (37.0-80.0); Platelet Count (auto) 484 10^3/uL (140-450); Red Cell Distribution Width 16.1 % (11.8-14.3); White Blood Cell 7.6 10^3/uL (4.4-10.8)
[2025-01-24 01:36] LABS: Alanine Aminotransferase 17 U/L (7-40); Albumin 4.2 g/dL (3.2-4.8); Alkaline Phosphatase 96 U/L (46-116); Anion Gap 9 (5-15); Aspartate Aminotransferase 22 U/L (13-40); BUN/Creatinine Ratio 11.9 (10.0-20.0); Bilirubin, Total 0.4 mg/dL (0.2-1.0); Blood Urea Nitrogen 12 mg/dL (9-23); Calcium 9.2 mg/dL (8.7-10.4); Carbon Dioxide 25 mmol/L (20-31); Sodium 143 mmol/L (136-145); Total Protein 6.4 g/dL (5.7-8.2)
[2025-01-24 01:52] LABS: Chloride 109 mmol/L (98-107); Glucose 170 mg/dL (74-106)
--- NOTE | 2025-01-24 02:53 | DVH ---
CHEST RADIOGRAPH Indication: SOB Technique: Single frontal view of the chest was obtained COMPARISON: XY CHEST PORTABLE on DOS: 01/03/23, CHEST PORTABLE on DOS: 04/24/22, CXRP on DOS: 04/23/22 FINDINGS: Lines and Tubes: None Lungs: Clear Pleura: No effusion. No pneumothorax. Cardiomediastinal contours: Unremarkable Bones: Unremarkable IMPRESSION: 1. No acute disease.
--- NOTE | 2025-01-24 06:42 | ECG ---
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
[2025-01-24] MEDS: SODIUM CHLORIDE 0.9% 1,000 ML IVB ONE (06:53)
[2025-01-24] MEDS: ASPirin 81 mg TAB PO ONE (06:55)
[2025-01-24 07:56] VITALS: PULSE 55; RESP 14; O2SAT 97
[2025-01-24 09:00] VITALS: BP 159/75; PULSE 72; RESP 17; O2SAT 95
== END 2025-01-24 09:42 | disposition left against medical advice (07) ==
LOC: EDBD 00:24 → ER 00:24
DX: I20.0 Unstable angina (principal); I95.9 Hypotension, unspecified; E86.0 Dehydration; R55 Syncope and collapse; I10 Essential (primary) hypertension; E78.00 Pure hypercholesterolemia, unspecified; K21.9 Gastro-esophageal reflux disease without esophagitis; M19.90 Unspecified osteoarthritis, unspecified site; F41.9 Anxiety disorder, unspecified; F32.A Depression, unspecified; F17.210 Nicotine dependence, cigarettes, uncomplicated; Z79.899 Other long term (current) drug therapy; Z88.1 Allergy status to other antibiotic agents
CPT/HCPCS: 36415; 71045; 80053; 83605; 83735; 84484; 85025; 87040; 93005; 96360; 96361; 99285; J7030

== ENCOUNTER → 2025-06-05 | Outpatient (CLI) | payer MEDICARE, MEDICAID | END | disposition home or self-care (01) | LOC: Rad HDHVI 13:20 | PROVIDERS: ATTEND Internal Medicine Cardiovascular Disease | DX: R00.2 Palpitations (principal); R42 Dizziness and giddiness | CPT/HCPCS: 93306 ==

== ENCOUNTER 2025-06-08 20:46 | Inpatient (IN) | payer MEDICARE, MEDICAID ==
[~2025-06-08] VITALS: Ht 165.1 cm; Wt 98.9 kg
--- NOTE | 2025-06-08 21:51 | ED.PDOC ---
History of Present Illness HPI Comments 74 y/o F is BIBA from private residence for c/c of syncope. Per EMS personnel report, patient was on a zoom call with friends when she, suddenly, became dizzy and passed out. She is stated to have fell and hit the left side of her jaw cheek on the way to the floor. Denies any head, neck, or back pain. Patient reports pertinent history of multiple recent episodes of hypotension and hyperglycemia and passing out in the past that are still being investigated by her PCP. Blood pressure and blood glucose on scene were 156/81 and 110, respectively. Chief Complaint: Syncope Time Seen by MD: 21:00 Primary Care Provider: SABI Reviewed Notes: Nurses Notes, Director Of Leadership Development Notes, Medications, Allergies Allergies: Coded Allergies: Ceftriaxone (Unverified Allergy, Unknown, 01/06/14) Home Meds Active Scripts Naproxen Sodium (Naproxen) 220 Mg Tab, 220 MG PO BID for 7 Days, #14 TAB Prov:MARGARITA GERARDO MD 09/09/23 Albuterol Sulfate (Albuterol Sulfate Hfa) 108 Mcg/Act Aer, 108 MCG IN TID for 20 Days, #1 AER Prov:NETTA CALLAHAN 09/01/21 Levofloxacin (Levaquin) 500 Mg Tab, 500 MG PO DAILY for 10 Days, #10 TAB Prov:NETTA CALLAHAN 09/01/21 Sucralfate (CARAFATE) 1 Gm Tab, 1 GM PO QIDACHS for 30 Days, #120 TAB 1 Refill Prov:TERESITA BRUNNER MD 03/09/21 Pantoprazole Sodium Sesquihydr (Protonix) 40 Mg Tab, 40 MG PO BID for 30 Days, #60 TAB 1 Refill Prov:TERESITA BRUNNER MD 03/09/21 Reported Medications Cholecalciferol (VITAMIN D3) 2,000 Unit Tab, 2000 UNIT OR, TAB 06/25/21 Lisinopril (Lisinopril) 20 Mg Tab, 20 MG PO DAILY for 30 Days, MG 02/25/15 Information Source: Patient, Emergency Med Personnel Mode of Arrival: EMS Severity: Moderate Timing: Hours Duration: Minutes Prehospital treatment: 12 Lead EKG, Accucheck, It Disaster Recovery Manager Past Medical History PAST MEDICAL HISTORY: Anxiety, Arthritis, Depression, GERD, High Lipids, HTN, Hypotension Surgical History: HOME PERFORMANCE CONSULTANT History: No Pertinent HOME PERFORMANCE CONSULTANT History Family History Family History: Reviewed,noncontributory to illness, Family hx of DM, Family hx of HTN Social History Smoker: Cigarettes, Less Than 1 Pack/Day Alcohol: Denies ETOH Use Drugs: Denies Drug Use Lives In: Home All Other Systems: Reviewed and Negative (As per HPI) Physical Exam General Appearance: No Apparent Distress, Normal HEENT: Head (contusion to left jaw cheek with mild ecchymosis ), Normal ENT Inspection, Pharynx Normal, TMs Normal Neck: Full Range of Motion, Non-Tender, Normal, Normal Inspection Respiratory: Chest Non-Tender, Lungs Clear, No Accessory Muscle Use, No Respiratory Distress, Normal Breath Sounds Cardiovascular: No Edema, No JVD, No Murmur, No Gallop, Normal Peripheral Pulses, Regular Rate/Rhythm Breast Exam: Deferred Gastrointestinal: No Organomegaly, Non Tender, No Pulsatile Mass, Normal Bowel Sounds, Soft Genitalia: Deferred Pelvic: Deferred Rectal: Deferred Extremities: No calf tenderness, Normal capillary refill, Normal inspection, Normal range of motion, Non-tender, No pedal edema Musculoskeletal : Apperance: Normal Neurologic: Alert, enterprise software developer II-XII nml as Tested, No Motor Deficits, Normal Affect, Normal Mood, No Sensory Deficits Cerebellar Function: Normal Reflexes: Normal Skin: Bruises (left jaw cheek with mild ecchymosis ), Dry, Normal Color, Warm Lymphatic: No Adenopathy Was a procedure done? Was a procedure done?: No Differential Dx Considerations may include: hypotension, hyperglycemia, vasovagal response, dehydration, electrolyte imbalance, closed head injury, contusion, fracture, among others X-Ray, Labs, Meds, VS Vital Signs Date Time Temp Pulse Resp B/P (MAP) Pulse Ox O2 Delivery O2 Flow Rate FiO2 06/08/25 20:57 67 06/08/25 20:46 98.7 60 18 155/75 99 98.7 Lab Test 06/08/25 21:34 Range/Units White Blood Count 8.5 4.4-10.8 10^3/uL Red Blood Count 4.47 4.0-5.20 10^6/uL Hemoglobin 11.5 L 12.2-16.2 g/dL Hematocrit 36.0 36.0-46.0 % Mean Corpuscular Volume 80.5 80.0-100.0 fL Mean Corpuscular Hemoglobin 25.8 L 28.0-32.0 pg Mean Corpuscular Hemoglobin Concent 32.1 32.0-36.0 g/dL Red Cell Distribution Width 16.0 H 11.8-14.3 % Platelet Count 459 H 140-450 10^3/uL Mean Platelet Volume 6.2 L 6.9-10.8 fL Neutrophils (%) (Auto) 71.8 37.0-80.0 % Lymphocytes (%) (Auto) 17.8 10.0-50.0 % Monocytes (%) (Auto) 7.3 0.0-12.0 % Eosinophils (%) (Auto) 2.3 0.0-7.0 % Basophils (%) (Auto) 0.8 0.0-2.0 % Neutrophils # (Auto) 6.1 1.6-8.6 10 ^3/uL Lymphocytes # (Auto) 1.5 0.4-5.4 10 ^3/uL Monocytes # (Auto) 0.6 0-1.3 10 ^3/uL Eosinophils # (Auto) 0.2 0-0.8 10 ^3/uL Basophils # (Auto) 0.1 0-0.2 10 ^3/uL Nucleated Red Blood Cells 0.0 % Sodium Level 142 136-145 mmol/L Potassium Level 4.1 3.5-5.1 mmol/L Chloride Level 106 98-107 mmol/L Carbon Dioxide Level 25 20-31 mmol/L Anion Gap 11 5-15 Blood Urea Nitrogen 9 9-23 mg/dL Creatinine 1.07 H 0.550-1.02 mg/dL Glomerular Filtration Rate Calc 55 >90 mL/min BUN/Creatinine Ratio 8.4 L 10.0-20.0 Serum Glucose 110 H 74-106 mg/dL Calcium Level 9.4 8.7-10.4 mg/dL Magnesium Level 2.3 1.6-2.6 mg/dL Total Bilirubin 0.5 0.2-1.0 mg/dL Aspartate Amino Transferase (AST) 31 13-40 U/L Alanine Aminotransferase (ALT) 16 7-40 U/L Alkaline Phosphatase 110 46-116 U/L Troponin I High Sensitivity 6 </=34 ng/L Total Protein 7.4 5.7-8.2 g/dL Albumin 4.5 3.2-4.8 g/dL Time of 1ST Reevaluation: 21:30 Reevaluation 1ST: Unchanged Patient Education/Counseling: Diagnosis, Treatment, Other (need for admission ) Family Education/Counseling: No Family Present SEPSIS Sepsis Screen Physician Orders Troponin-I Hs (06/08/25 22:06) Troponin-I Hs (06/09/25 00:06) Head Without Contrast (06/08/25 21:13) Maxillofacial Without (06/08/25 21:13) Electrocardigram (06/08/25 23:33) Vital Signs Date Time Temp Pulse Resp B/P (MAP) Pulse Ox O2 Delivery O2 Flow Rate FiO2 06/08/25 20:57 67 06/08/25 20:46 98.7 60 18 155/75 99 98.7 Laboratory Tests Test 06/08/25 21:34 White Blood Count 8.5 10^3/uL (4.4-10.8) Departure 1 Departure Time of Disposition: 00:13 Impression: Primary Impression: Syncope and collapse Additional Impression: Intermediate coronary syndrome Disposition: ADMITTED INPATIENT Admit to: Tele Condition: Guarded Comments 74-year-old female with syncopal episode. She fell and hit her face. CT shows no acute pathology. I am worried about possible cardiac etiology of the syncope and will admit the patient for further workup. Critical Care Note Critical Care Time?: Yes (35 min-critical care time only) Critical care comment: Total critical care time: Approximately 36 minutes Due to a high probability of clinically significant, life threatening deterioration, the patient required my highest level of preparedness to intervene emergently and I personally spent this critical care time directly and personally managing the patient. This critical care time included obtaining a history; examining the patient; pulse oximetry; ordering and review of studies; arranging urgent treatment with development of a management plan; evaluation of patient's response to treatment; frequent reassessment; and, discussions with other providers. This critical care time was performed to assess and manage the high probability of imminent, life-threatening deterioration that could result in multi-organ failure. It was exclusive of separately billable procedures and treating other patients. Stability Stability form required: No Heart Score Heart Score: Heart Score Response (Comments) Value History Slightly Suspicious 0 EKG Repolarization Disturb 1 Age >65 2 Risk Factors 1 or 2 risk factors 1 Troponin Normal limit 0 Total 4 I personally scribed for MARISOL JULES MD ([email or web address]) on 06/08/25 at 21:51. Electronically submitted by Deejay Gerardo ([email or web address]). MARISOL JULES MD Jun 08, 2025 21:51
[2025-06-08 21:52] LABS: Hemoglobin 11.5 g/dL (12.2-16.2); Mean Corpuscular Hemoglobin 25.8 pg (28.0-32.0); Nucleated Red Blood Cells % 0.0 %
[2025-06-08 21:53] LABS: Hematocrit 36.0 % (36.0-46.0); Mean Corpuscular Volume 80.5 fL (80.0-100.0)
[2025-06-08 22:35] LABS: Alanine Aminotransferase 16 U/L (7-40); Albumin 4.5 g/dL (3.2-4.8); Alkaline Phosphatase 110 U/L (46-116); Anion Gap 11 (5-15); BUN/Creatinine Ratio 8.4 (10.0-20.0); Blood Urea Nitrogen 9 mg/dL (9-23); Calcium 9.4 mg/dL (8.7-10.4); Carbon Dioxide 25 mmol/L (20-31); Chloride 106 mmol/L (98-107); Magnesium 2.3 mg/dL (1.6-2.6); Potassium 4.1 mmol/L (3.5-5.1); Sodium 142 mmol/L (136-145); Total Protein 7.4 g/dL (5.7-8.2)
[2025-06-08 22:36] LABS: Bilirubin, Total 0.5 mg/dL (0.2-1.0); Glucose 110 mg/dL (74-106)
--- NOTE | 2025-06-08 23:05 | DVH ---
EXAM: CT HEAD WITHOUT CONTRAST INDICATION: syncope TECHNIQUE: CT of the head without intravenous contrast. Radiation Dose Information: CT Dose: CTDI volume is 66.92 mGy. Dose-length product is 2197.75 mGy*cm The dose indicators for CT are the volume Computed Tomography (CT) Dose Index (CTDIvol) and the Dose Length Product (DLP), and are measured in units of mGy and mGy-cm, respectively. These indicators are not patient dose, but values generated from the CT scanner acquisition factors. The report includes radiation exposure data for exposures received during this examination. COMPARISON: CTA HEAD NECK on DOS: 05/17/25, CT HEAD WITHOUT CONTRAST on DOS: 09/09/23, HEAD WITHOUT CON TRAST on DOS: 04/23/22 FINDINGS: There is no evidence of acute intracranial hemorrhage, extra-axial collection, mass effect, midline s hift, herniation or hydrocephalus. The ventricles, sulci and cisterns are age appropriate. The cho-white differentiation is intact. The visualized paranasal sinuses and mastoid air cells are clear. The surrounding soft tissues and osseous structures are unremarkable. IMPRESSION: No acute intracranial abnormality.
--- NOTE | 2025-06-08 23:07 | DVH ---
HISTORY: syncope face injury TECHNIQUE: Nonenhanced axial images through the facial bones with coronal and sagittal MPR. Radiation Dose Information: CT Dose: CTDI volume is 66.92 mGy. Dose-length product is 1342.31 mGy*cm COMPARISON: CT HEAD WITHOUT CONTRAST on DOS: 06/08/25, CTA HEAD NECK on DOS: 05/17/25, CT HEAD WITHOUT CONTRAST on DOS: 09/09/23, HEAD WITHOUT CONTRAST on DOS: 04/23/22 FINDINGS: Mandible: Unremarkable Maxilla: Unremarkable Zygomatic arches: Unremarkable Nasal bone: Unremarkable Orbits: Unremarkable Sinuses: Clear Facial swelling: None IMPRESSION: No acute facial fractures. Radiation optimization: All CT scans at this facility use at least one of these dose optimization suha hniques: automated exposure control mA and/or kV adjustment per patient size (includes targeted exam s where dose is matched to clinical indication) or iterative reconstruction.
[2025-06-09] MEDS ORDERED: ACETAMINOPHEN 325 MG TAB PO PRN (01:00)
[2025-06-09] MEDS ORDERED: NITROGLYCERIN 0.4 MG SL TAB SL PRN (01:00)
[2025-06-09] MEDS ORDERED: MORPHINE SULFATE INJ 2 MG/ml SYRG IV PRN (01:00)
--- NOTE | 2025-06-09 04:33 | DVHHP2 ---
History of Present Illness Reason for Visit: Syncope History of Present Illness 74-year-old female presents for evaluation of syncopal episode. Patient reports recurrent episodes of syncope over the past couple of weeks. She had an episode yesterday where she became dizzy and lightheaded and subsequently passed out. She states that when she wakes up she became nauseous and vomited. Denies any chest pain or shortness for breath. Currently denies any other acute complaints. Past Medical History GERD, depression, arthritis, dyslipidemia, hypertension Past Surgical History Family History Diabetes mellitus and hypertension Smoke: No ALCOHOL: none Drugs: None Lives: with Family Review of Systems Review of Systems Review of systems are currently negative otherwise addressed in HPI. Allergies: Coded Allergies: Ceftriaxone (Unverified Allergy, Unknown, 01/06/14) Medications Current Medications Medications Dose Ordered Sig/Ervin Route Start Time Stop Time Status Last Admin Dose Admin Aspirin 81 mg DAILY PO 06/09/25 10:00 Lisinopril 20 mg DAILY PO 06/09/25 10:00 Pantoprazole Sodium 40 mg DAILY@0600 PO 06/09/25 06:00 Acetaminophen/ Hydrocodone Bitart 1 tab Q4HP PRN PO 06/09/25 01:00 Ondansetron HCl 4 mg Q4HP PRN IV 06/09/25 01:00 Acetaminophen 650 mg Q6HP PRN PO 06/09/25 01:00 Nitroglycerin 0.4 mg Q5MINP PRN SL 06/09/25 01:00 Morphine Sulfate 2 mg Q30M PRN IV 06/09/25 01:00 Exam Vital Signs Vital Signs Date Time Temp Pulse Resp B/P (MAP) Pulse Ox O2 Delivery O2 Flow Rate FiO2 06/08/25 20:57 67 06/08/25 20:46 98.7 18 155/75 99 98.7 Exam Gen: 74-year-old female in no apparent distress. Skin: Warm, dry, normal color and texture, no rash. HEENT: Normocephalic atraumatic, mucous membranes moist and pink. Neck: Cervical and supraclavicular nodes normal without enlargement, trachea is midline, thyroid gland is normal without masses. Pulmonary: Clear to auscultation and percussion bilaterally. Cardiac: Regular rate and rhythm. No murmur Abdomen: Soft, nontender, nondistended, bowel sounds present all 4 quadrants, no guarding, no rigidity, no organomegaly. Extremities: No cyanosis, clubbing, no edema Neuro: Cranial nerves II through XII grossly intact, normal affect and speech, no focal motor deficits. Labs/Xrays ORDERING PHYSICIAN: MARISOL JULES MD PROCEDURE(s): HWOCT - HEAD WITHOUT CONTRAST REASON: syncope ORDER NUMBER(s): [id number], ACCESSION NUMBER(s): [id number] EXAM: CT HEAD WITHOUT CONTRAST INDICATION: syncope TECHNIQUE: CT of the head without intravenous contrast. Radiation Dose Information: CT Dose: CTDI volume is 66.92 mGy. Dose-length product is 2197.75 mGy*cm The dose indicators for CT are the volume Computed Tomography (CT) Dose Index ( CTDIvol) and the Dose Length Product (DLP), and are measured in units of mGy and mGy-cm, respectively. These indicators are not patient dose, but values generated from the CT scanner acquisition factors. The report includes radiation exposure data for exposures received during this examination. COMPARISON: CTA HEAD NECK on DOS: 05/17/25, CT HEAD WITHOUT CONTRAST on DOS: 09/09/23, HEAD WITHOUT CONTRAST on DOS: 04/23/22 FINDINGS: There is no evidence of acute intracranial hemorrhage, extra-axial collection, mass effect, midline shift, herniation or hydrocephalus. The ventricles, sulci and cisterns are age appropriate. The cho-white differentiation is intact. The visualized paranasal sinuses and mastoid air cells are clear. The surrounding soft tissues and osseous structures are unremarkable. IMPRESSION: No acute intracranial abnormality. RING PHYSICIAN: MARISOL JULES MD PROCEDURE(s): FAC2C - MAXILLOFACIAL WITHOUT REASON: syncope face injury ORDER NUMBER(s): [id number], ACCESSION NUMBER(s): [id number] HISTORY: syncope face injury TECHNIQUE: Nonenhanced axial images through the facial bones with coronal and sagittal MPR. Radiation Dose Information: CT Dose: CTDI volume is 66.92 mGy. Dose-length product is 1342.31 mGy*cm COMPARISON: CT HEAD WITHOUT CONTRAST on DOS: 06/08/25, CTA HEAD NECK on DOS: 05/17/25, CT HEAD WITHOUT CONTRAST on DOS: 09/09/23, HEAD WITHOUT CONTRAST on DOS: 04/23/22 FINDINGS: Mandible: Unremarkable Maxilla: Unremarkable Zygomatic arches: Unremarkable Nasal bone: Unremarkable Orbits: Unremarkable Sinuses: Clear Facial swelling: None IMPRESSION: No acute facial fractures. Radiation optimization: All CT scans at this facility use at least one of these dose optimization techniques: automated exposure control mA and/or kV adjustment per patient size (includes targeted exams where dose is matched to clinical indication) or iterative reconstruction. Labs Test 06/08/25 21:34 Range/Units White Blood Count 8.5 4.4-10.8 10^3/uL Red Blood Count 4.47 4.0-5.20 10^6/uL Hemoglobin 11.5 L 12.2-16.2 g/dL Hematocrit 36.0 36.0-46.0 % Mean Corpuscular Volume 80.5 80.0-100.0 fL Mean Corpuscular Hemoglobin 25.8 L 28.0-32.0 pg Mean Corpuscular Hemoglobin Concent 32.1 32.0-36.0 g/dL Red Cell Distribution Width 16.0 H 11.8-14.3 % Platelet Count 459 H 140-450 10^3/uL Mean Platelet Volume 6.2 L 6.9-10.8 fL Neutrophils (%) (Auto) 71.8 37.0-80.0 % Lymphocytes (%) (Auto) 17.8 10.0-50.0 % Monocytes (%) (Auto) 7.3 0.0-12.0 % Eosinophils (%) (Auto) 2.3 0.0-7.0 % Basophils (%) (Auto) 0.8 0.0-2.0 % Neutrophils # (Auto) 6.1 1.6-8.6 10 ^3/uL Lymphocytes # (Auto) 1.5 0.4-5.4 10 ^3/uL Monocytes # (Auto) 0.6 0-1.3 10 ^3/uL Eosinophils # (Auto) 0.2 0-0.8 10 ^3/uL Basophils # (Auto) 0.1 0-0.2 10 ^3/uL Nucleated Red Blood Cells 0.0 % Sodium Level 142 136-145 mmol/L Potassium Level 4.1 3.5-5.1 mmol/L Chloride Level 106 98-107 mmol/L Carbon Dioxide Level 25 20-31 mmol/L Anion Gap 11 5-15 Blood Urea Nitrogen 9 9-23 mg/dL Creatinine 1.07 H 0.550-1.02 mg/dL Glomerular Filtration Rate Calc 55 >90 mL/min BUN/Creatinine Ratio 8.4 L 10.0-20.0 Serum Glucose 110 H 74-106 mg/dL Calcium Level 9.4 8.7-10.4 mg/dL Magnesium Level 2.3 1.6-2.6 mg/dL Total Bilirubin 0.5 0.2-1.0 mg/dL Aspartate Amino Transferase (AST) 31 13-40 U/L Alanine Aminotransferase (ALT) 16 7-40 U/L Alkaline Phosphatase 110 46-116 U/L Troponin I High Sensitivity 6 </=34 ng/L Total Protein 7.4 5.7-8.2 g/dL Albumin 4.5 3.2-4.8 g/dL SEPSIS Sepsis Screen Date sepsis recognized/suspect: Jun 08, 2025 Time Sepsis recognized/suspect: 2045 Recent Procedure: No On Antibiotic Therapy: No Respiratory Rate >20: No Heart Rate >90: No Temp<36 C (96.8 F) or >38.3 C: No SBP <90 or MAP <65 mmHG: No New Acute Mental Status Change: No Is the patient on CPAP, BIPAP,: No Physician Orders Troponin-I Hs (06/08/25 22:06) Troponin-I Hs (06/09/25 00:06) Head Without Contrast (06/08/25 21:13) Maxillofacial Without (06/08/25 21:13) Electrocardigram (06/08/25 23:33) Aspirin Tablet (06/09/25 10:00) Lisinopril Tablet (Zestril Tablet) (06/09/25 10:00) Orthostatic Vital Signs (06/09/25 01:00) Pantoprazole Tablet (Protonix Tablet) (06/09/25 06:00) Basic Metabolic Panel (06/10/25 04:00) Admit (06/09/25 01:00) Hydrocodone-Acet 5/325mg Tab ([place] 5/32 (06/09/25 01:00) Ondansetron Hcl (Zofran) (06/09/25 01:00) Cardiac Diet-2gna,Lofat,Lochol (06/09/25 Breakfast) Echo 2d Mode Cardiac Dop (06/09/25 01:00) Carotid Duplx W Color Dop (06/09/25 01:00) Condition: Fair (06/09/25 01:00) Acetaminophen Tablet (Tylenol Tablet) (06/09/25 01:00) Bedrest With Bathroom Privileg (06/09/25 01:00) Nitroglycerin Sublingual (Ntrostat Subli (06/09/25 01:00) Morphine Sulfate Injection (06/09/25 01:00) Stat Ekg For Chest Pain (06/09/25:00) Notify Of Changes From Base (06/09/25 01:00) Tax Manager For 24 Hours (06/09/25 01:00) Emergency Dysrhythmia Protocol (06/09/25 01:00) Rhythm Strips Once Every Shift (06/09/25 01:00) Oxygen By Nasal Cannula (06/09/25 01:00) Urinalysis (06/09/25 01:00) Vital Signs Date Time Temp Pulse Resp B/P (MAP) Pulse Ox O2 Delivery O2 Flow Rate FiO2 06/08/25 20:57 67 06/08/25 20:46 98.7 60 18 155/75 99 98.7 Laboratory Tests Test 06/08/25 21:34 White Blood Count 8.5 10^3/uL (4.4-10.8) Assessment/Plan Assessment/Plan Assessment Syncope Hypertension Acute kidney injury Plan Admit the patient to telemetry to the hospitalist Echocardiogram/carotid ultrasound pending Resume home medications Orthostatic vital signs Continue treatment per orders. Plan discussed with: Patient My Orders Orders - ORLY WOODARD Procedure Category Date Status Time Aspirin Tablet PHA 06/09/25 In Process 10:00 Lisinopril Tablet PHA 06/09/25 In Process (Zestril Tablet) 10:00 Orthostatic Vital ORDERS 06/09/25 Transmitted Signs 01:00 Pantoprazole Tablet PHA 06/09/25 In Process (Protonix Tablet) 06:00 Basic Metabolic Panel LAB 06/10/25 Verified 04:00 Admit ADMIT 06/09/25 Transmitted 01:00 Hydrocodone-Acet PHA 06/09/25 In Process 5/325mg Tab ([place] 01:00 Ondansetron Hcl PHA 06/09/25 In Process (Zofran) 01:00 Cardiac DIET 06/09/25 Transmitted Diet-2gna,Lofat,Lochol Breakfast Echo 2d Mode Cardiac US 06/09/25 Logged DOP 01:00 Carotid Duplx W Color US 06/09/25 Logged DOP 01:00 Condition: Fair JAYLAN 06/09/25 In Process 01:00 Acetaminophen Tablet PHA 06/09/25 In Process (Tylenol Tablet) 01:00 Bedrest With Bathroom JAYLAN 06/09/25 In Process Privileg 01:00 Nitroglycerin PHA 06/09/25 In Process Sublingual (Ntrostat 01:00 Morphine Sulfate PHA 06/09/25 In Process Injection 01:00 Stat Ekg For Chest JAYLAN 06/09/25 In Process Pain 01:00 Notify Of Changes JAYLAN 06/09/25 In Process From Base 01:00 Tax Manager For JAYLAN 06/09/25 In Process 24 Hours 01:00 Emergency Dysrhythmia JAYLAN 06/09/25 In Process Protocol 01:00 Rhythm Strips Once JAYLAN 06/09/25 In Process Every Shift 01:00 Oxygen By Nasal RT 06/09/25 Transmitted Cannula 01:00 Urinalysis LAB 06/09/25 Logged 01:00 Date of Service: Jun 09, 2025 Billing Provider: ORLY WOODARD Common Visit Codes: [id number] INP/OBS CARE (HIGH) ORLY WOODARD Jun 09, 2025 04:33
[2025-06-09] MEDS: HYDROcodone-ACET 5/325MG TAB PO PRN (06:51)
--- NOTE | 2025-06-09 08:05 | ECG ---
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
[2025-06-09] MEDS: PANTOPRAZOLE 40 MG TAB PO SCH (09:07)
[2025-06-09] MEDS: LISINOPRIL 20 MG TAB PO SCH (09:08)
--- NOTE | 2025-06-09 14:00 | DVHPN2 ---
Progress Note Date Seen: Jun 09, 2025 Medical Necessity Reason Pt with a Central, PICC or Fol: No Subjective Patient reports: No new complaints Review of Systems: HEENT:Normal, CVS:Normal, RESPIRATORY:Normal, GI:Normal, :Normal, MSK:Normal, NEURO:Normal Objective vital signs Vital Sign Date Time Temp Pulse Resp B/P (MAP) Pulse Ox O2 Delivery O2 Flow Rate FiO2 06/09/25 09:08 148/76 06/09/25 08:00 98.6 78 19 99 98.6 06/09/25 07:55 Room Air* 0 21 medications Current Medications Medications Dose Ordered Sig/Ervin Route Start Time Stop Time Status Last Admin Dose Admin Aspirin 81 mg DAILY PO 06/09/25 10:00 06/09/25 09:07 81 MG Lisinopril 20 mg DAILY PO 06/09/25 10:00 06/09/25 09:08 20 MG Pantoprazole Sodium 40 mg DAILY@0600 PO 06/09/25 06:00 06/09/25 09:07 40 MG Acetaminophen/ Hydrocodone Bitart 1 tab Q4HP PRN PO 06/09/25 01:00 06/09/25 06:51 1 TAB Ondansetron HCl 4 mg Q4HP PRN IV 06/09/25 01:00 Acetaminophen 650 mg Q6HP PRN PO 06/09/25 01:00 Nitroglycerin 0.4 mg Q5MINP PRN SL 06/09/25 01:00 Morphine Sulfate 2 mg Q30M PRN IV 06/09/25 01:00 Examination: GENERAL:Normal, HEENT:Normal, NECK:Normal, LUNGS:Normal, CVS:Normal, ABDOMEN:Normal, MSK:Normal, MSK:Abnormal (left facial bruise), SKIN:Normal, NEURO:Normal, :Normal laboratory and microbiology Laboratory Tests 06/08/25 21:34 Test 06/08/25 21:34 Range/Units Serum Glucose 110 H 74-106 mg/dL Problem List/Assessment/Plan Problem List/Assessment/Plan #1 recurrent syncopy: cardio eval #2 left facial bruise #3 htn #4 gerd #5 obesity #6 tobacco abuse: advised to quit, nicotine patch-time spent 11 mins advance care planning- full code-time spent 17 mins Plan discussed with: Patient My Orders My Orders Orders - ORLY SMITH MD Procedure Category Date Status Time * Cardiology Consult CONS 06/09/25 Transmitted 13:54 Lisinopril Tablet PHA 06/10/25 Verified (Zestril Tablet) 10:00 Orthostatic Vital ORDERS 06/09/25 Verified Signs 13:54 Urinalysis LAB 06/09/25 Uncollected 13:54 Basic Metabolic Panel LAB 06/10/25 Verified 06:00 Complete Blood Count LAB 06/10/25 Verified 06:00 Date of Service: Jun 09, 2025 Billing Provider: ORLY SMITH MD Common Visit Codes: [id number] INP/OBS CARE(HIGH) Secondary Visit Codes: [id number] CHNG SMOKING >10MIN, [id number] CARE PLAN 30 MINUTES ORLY SMITH MD Jun 09, 2025 14:00
--- NOTE | 2025-06-09 14:10 | DVHPN2 ---
Progress Note - Dictate Date Seen: Jun 09, 2025 Medical Necessity Reason Pt with a Central, PICC or Fol: No Subjective PT WITH RECURRENT SYNCOPE PMH HTN GERD HIGINIO vital signs Vital Sign Date Time Temp Pulse Resp B/P (MAP) Pulse Ox O2 Delivery O2 Flow Rate FiO2 06/09/25 09:08 148/76 06/09/25 08:00 98.6 78 19 99 98.6 06/09/25 07:55 Room Air* 0 21 medications Current Medications Medications Dose Ordered Sig/Ervin Route Start Time Stop Time Status Last Admin Dose Admin Aspirin 81 mg DAILY PO 06/09/25 10:00 06/09/25 09:07 81 MG Pantoprazole Sodium 40 mg DAILY@0600 PO 06/09/25 06:00 06/09/25 09:07 40 MG Acetaminophen/ Hydrocodone Bitart 1 tab Q4HP PRN PO 06/09/25 01:00 06/09/25 06:51 1 TAB Ondansetron HCl 4 mg Q4HP PRN IV 06/09/25 01:00 Acetaminophen 650 mg Q6HP PRN PO 06/09/25 01:00 Nitroglycerin 0.4 mg Q5MINP PRN SL 06/09/25 01:00 Morphine Sulfate 2 mg Q30M PRN IV 06/09/25 01:00 Lisinopril 10 mg DAILY PO 06/10/25 10:00 UNV laboratory and microbiology Laboratory Tests 06/08/25 21:34 Test 06/08/25 21:34 Range/Units Serum Glucose 110 H 74-106 mg/dL Problem List RECURRENT SYNCOPE PMH HTN GERD HIGINIO Assessment/Plan ORTHOSTATIC HYPOTENSION TROPONIN NEGATIVE Plan discussed with: Patient ISABELLA MITCHELL MD Jun 09, 2025 14:10
[2025-06-09 19:30] VITALS: PULSE 63; RESP 12; O2SAT 98
[2025-06-10] VITALS (11 sets, daily range): BP systolic 0–185; BP diastolic 50–83; PULSE 18–120; RESP 16–18; TEMP 97.3–98.1; O2SAT 97–99
[2025-06-10 07:01] LABS: Hemoglobin 11.6 g/dL (12.2-16.2); Nucleated Red Blood Cells % 0.1 %
[2025-06-10 07:04] LABS: Hematocrit 35.9 % (36.0-46.0); Mean Corpuscular Hemoglobin 26.2 pg (28.0-32.0); Mean Corpuscular Volume 81.1 fL (80.0-100.0)
[2025-06-10 07:12] LABS: Chloride 104 mmol/L (98-107); Potassium 4.0 mmol/L (3.5-5.1); Sodium 142 mmol/L (136-145)
[2025-06-10 07:13] LABS: Anion Gap 11 (5-15); Calcium 9.2 mg/dL (8.7-10.4); Carbon Dioxide 27 mmol/L (20-31)
[2025-06-10 07:18] LABS: BUN/Creatinine Ratio 10.0 (10.0-20.0); Blood Urea Nitrogen 8 mg/dL (9-23); Glucose 82 mg/dL (74-106)
[2025-06-10] MEDS: LISINOPRIL 20 MG TAB PO SCH (10:12)
--- NOTE | 2025-06-10 11:33 | DVHPN2 ---
Progress Note Date Seen: Jun 10, 2025 Medical Necessity Reason Pt with a Central, PICC or Fol: No Subjective Patient reports: No new complaints Review of Systems: HEENT:Normal, CVS:Normal, RESPIRATORY:Normal, GI:Normal, :Normal, MSK:Normal, NEURO:Normal Objective vital signs Vital Sign Date Time Temp Pulse Resp B/P (MAP) Pulse Ox O2 Delivery O2 Flow Rate FiO2 06/10/25 10:12 137/75 06/10/25 10:10 60 06/10/25 08:41 97.3 16 99 97.3 06/10/25 07:55 Room Air* 0 21 Total Intake and Output 06/09/25 06/09/25 06/10/25 15:00 23:00 07:00 Intake Total 0 ml Output Total 0 ml Balance 0 ml medications Current Medications Medications Dose Ordered Sig/Ervin Route Start Time Stop Time Status Last Admin Dose Admin Aspirin 81 mg DAILY PO 06/09/25 10:00 06/10/25 10:11 81 MG Pantoprazole Sodium 40 mg DAILY@0600 PO 06/09/25 06:00 06/10/25 05:35 40 MG Acetaminophen/ Hydrocodone Bitart 1 tab Q4HP PRN PO 06/09/25 01:00 06/09/25 18:29 1 TAB Ondansetron HCl 4 mg Q4HP PRN IV 06/09/25 01:00 Acetaminophen 650 mg Q6HP PRN PO 06/09/25 01:00 Nitroglycerin 0.4 mg Q5MINP PRN SL 06/09/25 01:00 Morphine Sulfate 2 mg Q30M PRN IV 06/09/25 01:00 Lisinopril 10 mg DAILY PO 06/10/25 10:00 06/10/25 10:12 10 MG Examination: GENERAL:Normal, HEENT:Normal, NECK:Normal, LUNGS:Normal, CVS:Normal, ABDOMEN:Normal, MSK:Normal, SKIN:Normal, NEURO:Normal, :Normal laboratory and microbiology Laboratory Tests 06/10/25 05:48 Test 06/10/25 05:48 Range/Units Serum Glucose 82 74-106 mg/dL Problem List/Assessment/Plan Problem List/Assessment/Plan #1 recurrent syncopy- orthostatic hypotension; florinef #2 left facial bruise #3 htn #4 gerd #5 obesity #6 tobacco abuse: advised to quit, nicotine patch-time spent 11 mins advance care planning- full code-time spent 17 mins Plan discussed with: Patient My Orders My Orders Orders - ORLY SMITH MD Procedure Category Date Status Time * Cardiology Consult CONS 06/09/25 Transmitted 13:54 Lisinopril Tablet PHA 06/10/25 In Process (Zestril Tablet) 10:00 Orthostatic Vital ORDERS 06/09/25 Transmitted Signs 13:54 Urinalysis LAB 06/09/25 Uncollected 13:54 Mrsa Screen BERNARDO 06/10/25 In Process 04:35 Mechanical Soft Diet DIET 06/10/25 Transmitted Breakfast Initiate Vte JAYLAN 06/10/25 In Process Prophylaxis 09:59 Date of Service: Jun 10, 2025 Billing Provider: ORLY SMITH MD Common Visit Codes: [id number] INP/OBS CARE(HIGH) ORLY SMITH MD Jun 10, 2025 11:33
[2025-06-10] MEDS: FLUDROCORTISONE ACETATE 0.1 MG TAB PO ONE (12:47)
--- NOTE | 2025-06-10 15:02 | DVHPN2 ---
Progress Note - Dictate Date Seen: Jun 10, 2025 Medical Necessity Reason Pt with a Central, PICC or Fol: No Subjective PT WITH RECURRENT SYNCOPE PMH HTN GERD HIGINIO vital signs Vital Sign Date Time Temp Pulse Resp B/P (MAP) Pulse Ox O2 Delivery O2 Flow Rate FiO2 06/10/25 13:00 97.6 65 16 153/67 (95) 97 97.6 65 06/10/25 07:55 Room Air* 0 21 Total Intake and Output 06/09/25 06/09/25 06/10/25 15:00 23:00 07:00 Intake Total 0 ml Output Total 0 ml Balance 0 ml medications Current Medications Medications Dose Ordered Sig/Ervin Route Start Time Stop Time Status Last Admin Dose Admin Aspirin 81 mg DAILY PO 06/09/25 10:00 06/10/25 10:11 81 MG Pantoprazole Sodium 40 mg DAILY@0600 PO 06/09/25 06:00 06/10/25 05:35 40 MG Acetaminophen/ Hydrocodone Bitart 1 tab Q4HP PRN PO 06/09/25 01:00 06/09/25 18:29 1 TAB Ondansetron HCl 4 mg Q4HP PRN IV 06/09/25 01:00 Acetaminophen 650 mg Q6HP PRN PO 06/09/25 01:00 Nitroglycerin 0.4 mg Q5MINP PRN SL 06/09/25 01:00 Morphine Sulfate 2 mg Q30M PRN IV 06/09/25 01:00 Lisinopril 10 mg DAILY PO 06/10/25 10:00 06/10/25 10:12 10 MG Fludrocortisone Acetate 0.05 mg DAILY PO 06/11/25 10:00 laboratory and microbiology Laboratory Tests 06/10/25 05:48 Test 06/10/25 05:48 Range/Units Serum Glucose 82 74-106 mg/dL Problem List RECURRENT SYNCOPE PMH HTN GERD HIGINIO Assessment/Plan ORTHOSTATIC HYPOTENSION TROPONIN NEGATIVE [facility] Plan discussed with: Patient ISABELLA MITCHELL MD Jun 10, 2025 15:02
[2025-06-10 18:18] LABS: Urine Protein, UAD Negative (Negative)
[2025-06-11 01:00] VITALS: BP 112/51; PULSE 61; RESP 17; TEMP 97.8; O2SAT 96
[2025-06-11] MEDS: ONDANSETRON HCL 4 MG/2 ML VIAL IV PRN (01:02)
[2025-06-11 05:00] VITALS: BP 162/77; PULSE 60; RESP 18; TEMP 97.7; O2SAT 98
[2025-06-11 08:00] VITALS: PULSE 65
[2025-06-11 08:41] VITALS: BP 148/81; PULSE 17; PULSE 66; RESP 17; TEMP 97.6; O2SAT 97
[2025-06-11] MEDS: FLUDROCORTISONE ACETATE 0.1 MG TAB PO SCH (10:22)
--- NOTE | 2025-06-11 11:58 | DVHDS2 ---
Discharge Summary Date of Admission Jun 09, 2025 at 01:00 Date of Discharge: Jun 11, 2025 Labs/Diagnostic Data: Laboratory Results Test 06/10/25 17:42 06/10/25 05:48 06/09/25 12:56 06/08/25 21:34 Urine Color Light-yellow (Yellow) Urine Clarity Clear (Clear) Urine pH 6.5 (5.0-9.0) Urine Specific [place] 1.013 (1.001-1.035) Urine Protein Negative (Negative) Urine Ketones Negative (Negative) Urine Blood Negative /uL (Negative) Urine Nitrite Negative (Negative) Urine Bilirubin Negative (Negative) Urine Urobilinogen Normal mg/dL (Negative) Urine Leukocyte Esterase Trace /uL (Negative) Urine RBC 1 /hpf (0 - 4) Urine Microscopic WBC 2 /HPF (0-5) Urine Squamous Epithelial Cells Few /hpf (<5) Urine Bacteria None seen /hpf (None Seen) Urine Glucose Normal mg/dL (Normal) White Blood Count 6.6 10^3/uL (4.4-10.8) Red Blood Count 4.42 10^6/uL (4.0-5.20) Hemoglobin 11.6 g/dL (12.2-16.2) Hematocrit 35.9 % (36.0-46.0) Mean Corpuscular Volume 81.1 fL (80.0-100.0) Mean Corpuscular Hemoglobin 26.2 pg (28.0-32.0) Mean Corpuscular Hemoglobin Concent 32.2 g/dL (32.0-36.0) Red Cell Distribution Width 15.9 % (11.8-14.3) Platelet Count 450 10^3/uL (140-450) Mean Platelet Volume 6.3 fL (6.9-10.8) Neutrophils (%) (Auto) 60.9 % (37.0-80.0) Lymphocytes (%) (Auto) 25.0 % (10.0-50.0) Monocytes (%) (Auto) 8.7 % (0.0-12.0) Eosinophils (%) (Auto) 4.5 % (0.0-7.0) Basophils (%) (Auto) 0.9 % (0.0-2.0) Neutrophils # (Auto) 4.0 10 ^3/uL (1.6-8.6) Lymphocytes # (Auto) 1.6 10 ^3/uL (0.4-5.4) Monocytes # (Auto) 0.6 10 ^3/uL (0-1.3) Eosinophils # (Auto) 0.3 10 ^3/uL (0-0.8) Basophils # (Auto) 0.1 10 ^3/uL (0-0.2) Nucleated Red Blood Cells 0.1 % Sodium Level 142 mmol/L (136-145) Potassium Level 4.0 mmol/L (3.5-5.1) Chloride Level 104 mmol/L (98-107) Carbon Dioxide Level 27 mmol/L (20-31) Anion Gap 11 (5-15) Blood Urea Nitrogen 8 mg/dL (9-23) Creatinine 0.80 mg/dL (0.550-1.02) Glomerular Filtration Rate Calc 77 mL/min (>90) BUN/Creatinine Ratio 10.0 (10.0-20.0) Serum Glucose 82 mg/dL (74-106) Calcium Level 9.2 mg/dL (8.7-10.4) Troponin I High Sensitivity 7 ng/L (</=34) Magnesium Level 2.3 mg/dL (1.6-2.6) Total Bilirubin 0.5 mg/dL (0.2-1.0) Aspartate Amino Transferase (AST) 31 U/L (13-40) Alanine Aminotransferase (ALT) 16 U/L (7-40) Alkaline Phosphatase 110 U/L (46-116) Total Protein 7.4 g/dL (5.7-8.2) Albumin 4.5 g/dL (3.2-4.8) Other Laboratory Tests 06/10/25 05:48 Brief Hx & Hospital Course: see dictated note Condition at Discharge: Fair Final Diagnosis/Problems List syncopy Discharge Disposition: Home Discharge Instruct/Medications Diet: Regular Activity: No Restrictions, As Tolerated Follow Up/Referral: fu with pcp/cardiology Medications: resume home meds script to pharmacy Scheduled Albuterol Sulfate (Albuterol Sulfate Hfa), 108 MCG IN TID Levofloxacin (Levaquin), 500 MG PO DAILY Lisinopril (Lisinopril), 20 MG PO DAILY, (Reported) Naproxen Sodium (Naproxen), 220 MG PO BID Pantoprazole Sodium Sesquihydr (Protonix), 40 MG PO BID Sucralfate (Carafate), 1 GM PO QIDACHS Miscellaneous Medications Cholecalciferol (Vitamin D3), 2,000 UNIT OR, (Reported) Discharge Statement: "Patient was advised to return to the ER or call 911 if any headaches, dizziness, shortness of breath, chest pain, abdominal pain, bleeding, fevers, or worsening of medical condition. Patient was counseled about treatment plan, medications, possible side effects, patientverbalized understanding. All questions were answered to the best of my ability. This discharge took greater then 30 minutes in planning, reviewing documentation, counseling the patient, and discussing with other team members." ASSESSMENT ASSESSMENT Assessment syncopy Date of Service: Jun 11, 2025 Billing Provider: ORLY SMITH MD Common Visit Codes: [id number] DISCH DAY >30min ORLY SMITH MD Jun 11, 2025 11:58
[2025-06-11] MEDS ORDERED: FLU01T PO (11:59)
--- NOTE | 2025-06-11 12:10 | DVHDS ---
DATE OF DISCHARGE: 06/11/2025 The patient is a 74-year-old lady who came with history of syncope and lightheadedness and has history of previous gastric bypass surgery, hypertension, hyperlipidemia, and depression. HOSPITAL COURSE: The patient had a CT of the head that showed no acute intracranial abnormality. Maxillofacial CT showed no acute facial fractures. The patient on telemetry had normal heart rate. The patient, however, was noted to be orthostatic with blood pressure dropping from 131 to 108. The patient was seen in Cardiology consult by Dr. Walker. She will now be discharged home to resume her home medications as well as to be on Florinef 0.1 mg daily. She will follow up with her primary as well as Dr. Walker. FINAL DIAGNOSES: * Recurrent syncope, questionable orthostatic hypotension/autonomic imbalance. * Autonomic insufficiency. * Possible dumping syndrome, status post gastric bypass surgery. * Left facial bruise. * Hypertension. * GERD. * Obesity. * Tobacco abuse. Time spent in discharge planning and review of plan with the patient and nursing was 38 minutes. MD BARI Grider/GUMARO TID: [id number] RECEIPT: [id number]
[2025-06-11 12:54] VITALS: BP 144/80; PULSE 17; PULSE 61; RESP 17; TEMP 97.6; O2SAT 98
--- NOTE | 2025-06-11 13:19 | DVHPN2 ---
Progress Note - Dictate Date Seen: Jun 11, 2025 Medical Necessity Reason Pt with a Central, PICC or Fol: No Subjective PT WITH RECURRENT SYNCOPE PMH HTN GERD HIGINIO vital signs Vital Sign Date Time Temp Pulse Resp B/P (MAP) Pulse Ox O2 Delivery O2 Flow Rate FiO2 06/11/25 12:54 97.6 61 17 144/80 (101) 98 97.6 17 61 06/10/25 22:00 Room Air* 0 21 Total Intake and Output 06/10/25 06/10/25 06/11/25 15:00 23:00 07:00 Intake Total 250 ml 500 ml 450 ml Output Total 450 ml Balance 250 ml 50 ml 450 ml medications Current Medications Medications Dose Ordered Sig/Ervin Route Start Time Stop Time Status Last Admin Dose Admin Aspirin 81 mg DAILY PO 06/09/25 10:00 06/11/25 10:21 81 MG Pantoprazole Sodium 40 mg DAILY@0600 PO 06/09/25 06:00 06/11/25 05:36 40 MG Acetaminophen/ Hydrocodone Bitart 1 tab Q4HP PRN PO 06/09/25 01:00 06/09/25 18:29 1 TAB Ondansetron HCl 4 mg Q4HP PRN IV 06/09/25 01:00 06/11/25 01:02 4 MG Acetaminophen 650 mg Q6HP PRN PO 06/09/25 01:00 Nitroglycerin 0.4 mg Q5MINP PRN SL 06/09/25 01:00 Morphine Sulfate 2 mg Q30M PRN IV 06/09/25 01:00 Lisinopril 10 mg DAILY PO 06/10/25 10:00 06/11/25 10:24 10 MG Fludrocortisone Acetate 0.05 mg DAILY PO 06/11/25 10:00 06/11/25 10:22 0.05 MG laboratory and microbiology Laboratory Tests 06/10/25 05:48 Test 06/10/25 05:48 Range/Units Serum Glucose 82 74-106 mg/dL Problem List RECURRENT SYNCOPE PMH HTN GERD HIGINIO GASTRIC BYPASS COPD TOBACCO USE HOLTER NEGATIVE ECHO NL EF MORBID OBESITY Assessment/Plan ORTHOSTATIC HYPOTENSION TROPONIN NEGATIVE FLORINEF Plan discussed with: Patient ISABELLA MITCHELL MD Jun 11, 2025 13:19
== END 2025-06-11 16:55 | disposition home or self-care (01) | DRG 74 ==
LOC: EDBD 20:46 → ER 20:46 → OVERFLOW 06-09 01:00 → TELE-WESTW 06-09 23:47
PROVIDERS: ADMIT Internal Medicine; ATTEND Internal Medicine
DX: G90.89 Other disorders of autonomic nervous system (principal); I95.1 Orthostatic hypotension; I10 Essential (primary) hypertension; K21.9 Gastro-esophageal reflux disease without esophagitis; G47.33 Obstructive sleep apnea (adult) (pediatric); F17.210 Nicotine dependence, cigarettes, uncomplicated; E78.5 Hyperlipidemia, unspecified; F32.A Depression, unspecified; S00.83XA Contusion of other part of head, initial encounter; E66.01 Morbid (severe) obesity due to excess calories; F41.9 Anxiety disorder, unspecified; J44.9 Chronic obstructive pulmonary disease, unspecified; Z79.82 Long term (current) use of aspirin; Z88.1 Allergy status to other antibiotic agents; Y92.89 Other specified places as the place of occurrence of the external cause; Z98.84 Bariatric surgery status; Z83.3 Family history of diabetes mellitus; Z82.49 Family history of ischemic heart disease and other diseases of the circulatory system; Z68.36 Body mass index [BMI] 36.0-36.9, adult; Z79.52 Long term (current) use of systemic steroids
CPT/HCPCS: 36415; 70450; 70486; 80048; 80053; 81001; 83735; 84484; 85025; 87081; 93005; 99291; G0378; J2405

== ENCOUNTER 2025-06-18 13:23 | Outpatient (CLI) | payer MEDICARE, MEDICAID ==
[~2025-06-18] VITALS: Ht 165.1 cm; Wt 90.7 kg
[~2025-06-18 13:23] MED LIST changes: +FLU01T PO
== END 2025-06-18 17:00 | disposition home or self-care (01) ==
LOC: Rad HDHVI 13:23
PROVIDERS: ATTEND Internal Medicine Cardiovascular Disease
DX: I49.1 Atrial premature depolarization (principal); I11.0 Hypertensive heart disease with heart failure; I50.33 Acute on chronic diastolic (congestive) heart failure; I25.10 Atherosclerotic heart disease of native coronary artery without angina pectoris; E78.5 Hyperlipidemia, unspecified; R00.2 Palpitations; R06.02 Shortness of breath; R55 Syncope and collapse; F17.210 Nicotine dependence, cigarettes, uncomplicated
CPT/HCPCS: 78452; 93017; A9500; 96374